=== PATIENT | female | born 1940 | race Caucasian/White ===

== ENCOUNTER → 2017-02-28 08:29 | Outpatient (CLI) | payer MEDICARE, MEDICAID, SELFPAY ==
--- NOTE | 2017-02-28 08:47 | CT_ITS ---
CT chest wo con HISTORY: Follow-up bilateral lung nodules ITS.REASON: LUNG MASS, ABNORMAL CT ORDERING PHYSICIAN: Meliton Yi MD PATIENT AGE: 76 years TECHNIQUE: Axial images obtained. Sagittal and coronal reformatted images are also generated and reviewed. CONTRAST: None COMPARISON: 01/05/2017 FINDINGS: The left lobe of the thyroid gland is enlarged with a 1.8 cm nodule along the lower pole on the left which may be better evaluated with ultrasound. Atherosclerotic calcification involves the aortic arch and coronary arteries. The heart size is normal. There is minimal thickening of the pericardium anteriorly. No mediastinal or hilar mass or adenopathy is evident. There is a small hiatal hernia. Severe centrilobular emphysematous changes are once again noted. There are fibrotic changes in the right apex along with a calcified granuloma in the right upper lobe. There is a new 5 mm noncalcified nodule in the right upper lobe centrally. A subpleural nodular density is present in the right upper lobe anteriorly at 4 mm not significantly changed. Previously described 8 mm nodule in the right middle lobe now measures 11 mm. Previously noted 15 mm nodule in the right lower lobe laterally is slightly smaller at 11 mm. Thick walled cavitating lesion in the left upper lobe is not significantly changed measuring 18 x 19 mm. No obvious bony destructive process. There remains focal area of dense calcification in the lower thoracic aorta along the anterior right lateral aspect. Cystic lesions once again noted within the liver. IMPRESSION: 1. Overall no change in the thick-walled cavitating mass in the left upper lobe. 2. There is mixed response in the multiple pulmonary nodules identified. The largest nodule in the right lung base laterally has decreased in size whereas 2 additional nodules on the right are larger. These findings are consistent with metastatic disease. 3. Centrilobular emphysema with coronary artery disease
[2017-02-28 12:46] VITALS: PULSE 90; PULSE 94
[2017-02-28 12:47] VITALS: BP 176/87; PULSE 90; RESP 20; O2SAT 95
[2017-02-28 12:49] VITALS: BP 215/94; PULSE 143; RESP 30; O2SAT 80
== END ==
PROVIDERS: Family Provider Nurse Practitioner Family; PCP Internal Medicine; Visit Provider Internal Medicine
DX: R06.02 Shortness of breath (principal); R91.8 Other nonspecific abnormal finding of lung field; R93.8 Abnormal findings on diagnostic imaging of other specified body structures; J44.9 Chronic obstructive pulmonary disease, unspecified
CPT/HCPCS: 71250; 94060; 94618; 94640; 94726; 94729

== ENCOUNTER → 2017-04-01 15:40 | Outpatient (CLI) | payer MEDICARE, MEDICAID, SELFPAY ==
--- NOTE | 2017-04-01 15:41 | XR_ITS ---
XR ribs LT min 3V w CXR1V HISTORY: ITS.REASON: left rib pain, history of pulmonary nodules, possible metastasis ORDERING PHYSICIAN: Philippe Schulz PATIENT AGE: 76 years COMPARISON: None FINDINGS: No displaced rib fractures. No lytic or blastic lesions evident. Consider bone scan for further evaluation in this patient with history of pulmonary nodules. IMPRESSION: No acute finding
--- NOTE | 2017-04-01 15:41 | XR_ITS ---
XR chest 2V HISTORY: ITS.REASON: cough ORDERING PHYSICIAN: Philippe Schulz PATIENT AGE: 76 years COMPARISON: 01/04/2017 FINDINGS: Unremarkable cardiovascular structures. No lobar consolidation or collapse is evident. Patient has known multiple bilateral pulmonary nodules are seen on previous chest CT. Left upper lobe nodule at 16 mm noted. Right middle lobe nodule has increased in size compared to the previous chest x-ray. These findings are suspicious for metastasis as noted from the previous chest CT. Mild left basilar atelectasis. IMPRESSION: 1. Multiple pulmonary nodules consistent with metastasis. 2. Left lower lobe atelectasis
== END ==
PROVIDERS: PCP Nurse Practitioner Family; Visit Provider Nurse Practitioner Family
DX: R05 Cough (principal); R07.81 Pleurodynia
CPT/HCPCS: 71046; 71101

== ENCOUNTER 2017-04-23 16:43 | Observation (INO) | payer MEDICARE, SELFPAY ==
[2017-04-23] VITALS (7 sets, daily range): BP systolic 125–165; BP diastolic 55–87; PULSE 91–106; RESP 20–24; TEMP 36.6–37.3; O2SAT 93–100; BMI 20.4; BMI 20.5
--- NOTE | 2017-04-23 17:01 | XR_ITS ---
XR chest 2V HISTORY: Dyspnea, cough ITS.REASON: cough, WALLER ORDERING PHYSICIAN: Corey Aggarwal MD PATIENT AGE: 76 years COMPARISON: 04/01/2017 FINDINGS: Normal heart size. Mild prominence of mediastinum probably related to tortuosity/ectasia of the ascending aorta. Bilateral pulmonary nodules are present consistent with metastatic disease as previously described. The nodule within the right middle lobe is increased in size measuring 18 mm previously measuring 12 mm. Patchy density is present in the left lung base may be due to an area of infiltrate. There is chronic coarsening of the bronchovascular markings. IMPRESSION: 1. Left lower lobe infiltrate. 2. Metastatic disease with increasing size nodule in the right middle lobe
[2017-04-23 17:21] LABS: Basophils % 0.4 % (0.1-2.0); Eosinophils # 0.1 K/mm3 (0.0-0.4); Eosinophils % 0.9 % (0.1-12.0); Hematocrit 37.6 % (37.0-47.0); Lymphocytes # 0.8 K/mm3 (0.7-4.5); Lymphocytes % 8.6 K/mm3 (10-50); Mean Corpuscular Hemoglobin 27.9 pg (27.0-31.2); Mean Platelet Volume 8.1 fl (7.4-10.4); Monocytes # 0.6 K/mm3 (0.1-1.0); Neutrophils # 8.2 K/mm3 (1.8-7.8); Neutrophils % 84.1 % (37.0-80.0); Platelet Count 290 K/mm3 (142-424); Red Blood Count 4.32 M/mm3 (4.20-5.40); Red Cell Distribution Width 14.6 % (11.5-17.5); White Blood Count 9.7 K/mm3 (4.8-10.8)
[2017-04-23 17:28] LABS: Alanine Aminotransferase 20 U/L (12-78); Albumin Level 3.6 gm/dL (3.4-5.0); Albumin/Globulin Ratio 0.9 (1.1-1.8); Alkaline Phosphatase 68 U/L (46-116); Anion Gap 12.6 mEq/L (5-15); Aspartate Amino Transferase 12 U/L (15-37); Bilirubin,Total 0.7 mg/dL (0.2-1.0); Blood Urea Nitrogen 7 mg/dL (7-18); Calcium 8.9 mg/dL (8.5-10.1); Carbon Dioxide 29 mmol/L (21.0-32.0); Chloride 101 mmol/L (98-107); Creatinine Clearance Estimated 42 mL/min (0-300); Creatinine,Serum 0.66 mg/dL (0.55-1.02); Estimated Glomerular Filt Rate 88 ml/min (>60); GFR (African American) 106 ML/MIN (>60); Globulin 3.9 gm/dl (1.3-3.2); Glucose 113 mg/dL (74-106); Potassium 3.6 mmoL/L (3.5-5.1); Sodium 139 mmol/L (136-145); Total Protein,Serum 7.5 gm/dL (6.4-8.2)
[2017-04-23 17:31] LABS: Lactic Acid 0.9 mmol/L (0.4-2.0)
--- NOTE | 2017-04-23 18:26 | HMH.EDGENADL ---
ED Disposition Clinical Impression: COPD exacerbation Acute bronchitis Qualifiers: Bronchitis organism: unspecified organism Qualified Code(s): J20.9 - Acute bronchitis, unspecified Disposition: Still a Patient Condition on Discharge: Good Referrals: Corey Aggarwal MD [Primary Care Provider] - - Critical Care Critical Care Time: No Attestation: On 04/23/17, the high probability of a clinically significant, sudden or life threatening deterioration of the following system(s) required my full and direct attention, intervention and personal management. The time I documented below is in addition to time spent performing reported procedures but includes the following listed in this critical care notation. Medical Decision Making Vital Signs: 04/23/17 16:47 04/23/17 18:14 Temperature 99.2 F Temperature Source Oral Pulse Rate [Right Brachial] 106 H 95 H Respiratory Rate 24 20 Blood Pressure [Right Arm] 133/81 160/75 Blood Pressure Mean [Right Arm] 98 103 Blood Pressure Source [Right Arm] Automatic Cuff Automatic Cuff Blood Pressure Position [Right Arm] Sitting Sitting 02 Sat by Pulse Oximetry 97 96 Oxygen Delivery Method Nasal Cannula Nasal Cannula Oxygen Flow Rate (LPM) 3 3 - Lab Data Lab Results 04/23/17 17:08: WBC 9.7, RBC 4.32, Hgb 12.0 L, Hct 37.6, MCV 87.0, MCH 27.9, MCHC 32.0, RDW 14.6, Plt Count 290, MPV 8.1, Neut % (Auto) 84.1 H, Lymph % (Auto) 8.6 L, [place] % (Auto) 6.0, Eos % (Auto) 0.9, Baso % (Auto) 0.4, Neut # (Auto) 8.2 H, Lymph # (Auto) 0.8, [place] # (Auto) 0.6, Eos # (Auto) 0.1, Baso # (Auto) 0.0 04/23/17 17:08: Sodium 139, Potassium 3.6, Chloride 101, Carbon Dioxide 29, Anion Gap 12.6, BUN 7, Creatinine 0.66, Estimated Creat Clear 42, Estimated GFR 88, Est GFR ( Amer) 106, Glucose 113 H, Calcium 8.9, Total Bilirubin 0.7, AST 12 L, ALT 20, Alkaline Phosphatase 68, Total Protein 7.5, Albumin 3.6, Globulin 3.9 H, Albumin/Globulin Ratio 0.9 L 04/23/17 17:08: Lactic Acid 0.9 Result diagrams: 04/23/17 17:08 04/23/17 17:08 Orders (Tests/Meds): ED MEDICATIONS Generic Name Dose Route Start Last Admin Trade Name Freq PRN Reason Stop Dose Admin Ceftriaxone Sodium 1 gm/ 50 mls @ 100 mls/hr 04/23/17 18:47 Sodium Chloride IV 04/23/17 19:16 ONCE ONE Discontinued Medications Generic Name Dose Route Start Last Admin Trade Name Freq PRN Reason Stop Dose Admin Albuterol/Ipratropium 3 ml 04/23/17 18:36 Duoneb 3ml Neb IH 04/23/17 18:37 ONCE ONE Azithromycin 500 mg/ Sodium 250 mls @ 250 mls/hr 04/23/17 18:47 Chloride IV 04/23/17 18:48 ONCE ONE Protocol ORDERS Category Date Time Status Chest XR 2 view (NOT portable) [XR chest 2V] Stat Exams 04/23/17 17:01 Taken Blood Culture Stat Micro 04/23/17 17:08 Received - Radiology Data #1 Image(s): Chest Image Reviewed: Yes I reviewed the patient's radiology results Nodules bilaterally, seen on previous x-rays. No acute infiltrate seen. COPD present. - Stefano Inquiry Pt receiving controlled substance: No Medical Decision Making Narrative: 6:45 PM: I have discussed the case with Dr. Agosto for Dr. Aggarwal who agrees to admit the patient to the hospital. We discussed the patient's clinical information, including history, exam, laboratory and radiology results and ED course. Per hospital procedure, I will write temporary bridge inpatient orders on the patient. Specific orders requested by the admitting physician: Rocephin and Zithromax, nebulizer treatments General Adult HPI - General Chief complaint: Shortness of Breath/Dyspnea Stated complaint: Sent from Dr. Aggarwal's Office Mode of Arrival: Ambulatory Limitations: No Limitations Description of Symptoms (Recalled from ER Triage Doc. by RN): productive cough x1 week, reports increased WALLER - History of Present Illness HPI narrative: The patient complains of cough, increasing dyspnea on exertion with low sock
--- NOTE | 2017-04-23 20:12 | PC.NURSE ---
REPORT CALLED AT 1924. NOTIFIED 2ND FLOOR AT 2009 THAT PATIENT WAS READY TO COME UP.
[2017-04-24 03:53] VITALS: BP 150/65; PULSE 86; RESP 20; TEMP 36.7; O2SAT 95
--- NOTE | 2017-04-24 04:12 | PC.NURSE ---
no changes noted from previous assessment, pt has rested well this shift, denies pain at this time, pt states SOA, breath sounds are diminished with expiratory wheezes noted, pt maintaining O2 sats at or above 90 on 2 L NC, bowel sounds active, no acute distress noted at this time, call light in reach, will continue to monitor.
[2017-04-24 06:22] VITALS: PULSE 87; PULSE 91; O2SAT 94
[2017-04-24 07:40] VITALS: BP 125/69; PULSE 106; RESP 18; TEMP 37.2; O2SAT 97
--- NOTE | 2017-04-24 07:54 | HMH.PHAVTE ---
[facility] Pharmacy VTE Monitoring - Patient Demographics Admission date: 04/23/17 Report Date: 04/24/17 Time: 07:54 Allergies/Adverse Reactions: Patient Allergies STEROIDS Allergy (Uncoded 04/23/17 16:12) Anaphylaxis Height: 1.63 m Weight: 54.176 kg Patient Problems: Current Active Problems COPD exacerbation (Acute) Acute bronchitis (Acute) - VTE Risk Labs: VTE Related Lab Results Hgb 12.0 g/dL (12.2-16.2) L 04/23/17 17:08 Hct 37.6 % (37.0-47.0) 04/23/17 17:08 Plt Count 290 K/mm3 (142-424) 04/23/17 17:08 BUN 7 mg/dL (7-18) 04/23/17 17:08 Creatinine 0.66 mg/dL (0.55-1.02) 04/23/17 17:08 Estimated Creat Clear 42 mL/min (0-300) 04/23/17 17:08 Was VTE Risk Assessment Performed: Yes VTE Score: 2 VTE Risk Level: Very Low Risk - Prophylaxis VTE Prophylaxis Ordered?: Yes Types of VTE Prophylaxis: TEDS Knee High Location of Applied Device: Bilateral Lower Extremeties - VTE Diagnosis Confirmed Treatment or plan recommended: Continue Current Treatment
--- NOTE | 2017-04-24 09:03 | CT_ITS ---
CT chest w con HISTORY: Shortness of breath, cough, abnormal chest x-ray follow-up, pulmonary nodule ITS.REASON: sob, poss lung mass ORDERING PHYSICIAN: Corey Aggarwal MD PATIENT AGE: 76 years TECHNIQUE: Axial images obtained following the intravenous administration of 75 mL's of Isovue-370 contrast. Sagittal, and coronal reformatted images are also generated and reviewed. COMPARISON: 02/28/2017 FINDINGS: There are slightly enlarged left lobe of the thyroid gland with a 6 mm nodule in the lower pole. Normal heart size. No evidence of central pulmonary embolus. The peripheral pulmonary arteries are not well opacified. No evidence of aortic aneurysm. There is mild degree of motion artifact which does obscure fine detail. Small lymph node is present in the right hilum and 1.6 x 1.7 cm. There is biapical pleural scarring with centrilobular emphysematous change and evidence of old granulomatous disease. There are multiple bilateral pulmonary nodules as previously described chip increased in size. The nodule noted on the radiograph in the right middle lobe measures 2 x 1.7 cm and previously measured 1 x 1 cm. Other smaller nodules are present and have increased in size including a macro lobular nodule in the right lower lobe laterally at 1.2 cm, 0.8 cm nodule right upper lobe in the subpleural region and a 0.7 cm nodule right upper lobe centrally. There is a cavitating nodule in the left upper lobe medially which measures 1.8 x 1.8 cm. This nodule is not significantly changed. There is patchy peripheral density in the left lower lobe within the lung base and laterally consistent with mild pneumonia. There is a new parenchymal opacity left lung base medially which may be due to atelectasis. A new nodules present in the left lower lobe posteriorly at 5 mm. Upper abdominal images demonstrates a cystic lesion in the right lobe of the liver 5.6 cm. There are 2 small isodensity is of the left lobe of the liver the largest at 5 mm posterolaterally to cyst as well too small to categorize. There is scarring of the right kidney. No bony destructive process is evident. There is a prominent area of eccentric plaque within the lower thoracic aorta anterolaterally. IMPRESSION: 1. Enlarging bilateral pulmonary nodules consistent with metastatic disease. Mildly enlarged right hilar lymph node 2. No change 2 cm left upper lobe cavitating mass which may represent primary neoplasm. 3. Centrilobular emphysema
--- NOTE | 2017-04-24 11:56 | SW/DCPLANNER ---
Spoke with this patient regarding discharge plans. Patient stated that she lives at home with family and does not feel the need for home health at this time. Patient stated that she does not have a need for a walker and has O2 at home. Patient stated that she cares for her seven year old grandson. Patient could potentially discharge home later this afternoon.
[2017-04-24 16:00] VITALS: BP 150/72; PULSE 93; RESP 18; TEMP 37.1; O2SAT 98
--- NOTE | 2017-04-24 16:47 | HMH.HPDC ---
General - General Admission date: 04/23/17 Discharge date: 04/24/17 *Admission Date: 04/23/17 *Chief complaint: sob *History of present illness: 76 yr old female seen in office yesterday with complains of cough, increasing dyspnea on exertion with low o2 sats (88%)with exertion, really a low-grade fever for 1 week. She has hx of COPD. She is on oxygen at home. She has a nebulizer at home. She reports allergic to all steroids. pt admitted for eval for sob [facility] History I have reviewed the patient's past medical history: Yes Medical History: Reports:: Anxiety, Asthma, Chronic Obstructive Pulmonary Disease (COPD) Denies:: Cancer, Diabetes Mellitus Type 1, Diabetes Mellitus Type 2 Other Surgeries: Yes: Hernia Repair, Hysterectomy-Partial Amputation: No Fractures: No - *Social History Smoking Status: Former smoker Tobacco Type: cigarettes Alcohol Intake: never Substance Use Type: denies use Occupational Status: retired Housing: house Household Members: family, children - Psychiatric History Expresses thoughts of harming self/others: None Suicide Plan Description: No Plan Pschychiatric History:: Reports:: Anxiety *Family Hx:: No significant family history Review of Systems - Constitutional Reports fatigue, Reports lack of energy - Eyes Denies floaters - ENT Denies sinus pressure - *Cardiovascular Denies foot swelling - *Respiratory Reports chest congestion, Reports cough, Reports shortness of breath, Reports shortness of breath with activity, Reports wheezing - *Gastrointestinal Denies difficulty swallowing - *Genitourinary Denies urinary incontinence - *Musculoskeletal Denies body aches - Integumentary/Breasts Denies rash - *Neurologic Denies radiating pain - Psychiatric Denies lack of enjoyment - Endocrine Denies excessive sweating - Hematologic/Lymphatic Denies enlarged lymph nodes - Allergic/Immunologic Denies lip swelling Exam Vital signs and Labs for Last 24 Hours: Temp Pulse Resp BP Pulse Ox 98.8 F 93 H 18 150/72 98 04/24/17 16:00 04/24/17 16:00 04/24/17 16:00 04/24/17 16:00 04/24/17 16:00 I & O for Last 24 hours: Intake & Output 04/22/17 04/23/17 04/24/17 04/25/17 11:59 11:59 11:59 11:59 Intake Total 420 / 670 240 / 240 Balance 420 / 670 240 / 240 Weight 119 lb 7 oz - Constitutional no acute distress - *Routine HEENT Exam Head: Present: normocephalic Eye: Present: PERRL ENT: Present: mucous membranes moist - *Routine Neck Exam Present: full ROM - *Routine Respiratory Exam Present: wheezes - *Routine Cardiovascular Exam Present: RRR - *Routine Extremities Exam Present: full ROM - *Routine Neurological Exam Present: alert, oriented X3, CN II-XII intact - Routine Psychiatric Exam Present: normal affect Hospital Course Hospital Course: spoke with dr cabral he will arrange out pt bronchscopy to evaluate lung mass. will dc home on zpak and hold steriods due to allergy. ct chest: IMPRESSION: 1. Enlarging bilateral pulmonary nodules consistent with metastatic disease. Mildly enlarged right hilar lymph node 2. No change 2 cm left upper lobe cavitating mass which may represent primary neoplasm. 3. Centrilobular emphysema Discharge Medications Discharge Medications: Home Medications Medication Instructions Recorded Confirmed Type albuterol sulfate 2.5 mg/3 mL 3 ml INHALATION Q4HP PRN 04/01/17 04/24/17 History (0.083 %) solution for nebulization budesonide-formoterol HFA 160 2 puff INHALATION Q12H 04/01/17 04/24/17 History mcg-4.5 mcg/actuation aerosol inhaler tiotropium bromide 18 mcg capsule 1 puff INHALATION DAILY each 04/01/17 04/24/17 History with inhalation device Ipratropium/Albuterol Sulfate 1 puff INHALATION TID 04/23/17 04/23/17 History [Combivent Respimat Inh] Albuterol Sulfate [Albuterol HFA 1 puff IH Q4HP PRN 04/24/17 04/24/17 History Inhaler]
--- NOTE | 2017-04-24 16:51 | P.HPDS_ITS ---
General - General Admission date: 04/23/17 Discharge date: 04/24/17 *Admission Date: 04/23/17 *Chief complaint: sob *History of present illness: 76 yr old female seen in office yesterday with complains of cough, increasing dyspnea on exertion with low o2 sats (88%)with exertion, really a low-grade fever for 1 week. She has hx of COPD. She is on oxygen at home. She has a nebulizer at home. She reports allergic to all steroids. pt admitted for eval for sob [facility] History I have reviewed the patient's past medical history: Yes Medical History: Reports:: Anxiety, Asthma, Chronic Obstructive Pulmonary Disease (COPD) Denies:: Cancer, Diabetes Mellitus Type 1, Diabetes Mellitus Type 2 Other Surgeries: Yes: Hernia Repair, Hysterectomy-Partial Amputation: No Fractures: No - *Social History Smoking Status: Former smoker Tobacco Type: cigarettes Alcohol Intake: never Substance Use Type: denies use Occupational Status: retired Housing: house Household Members: family, children - Psychiatric History Expresses thoughts of harming self/others: None Suicide Plan Description: No Plan Pschychiatric History:: Reports:: Anxiety *Family Hx:: No significant family history Review of Systems - Constitutional Reports fatigue, Reports lack of energy - Eyes Denies floaters - ENT Denies sinus pressure - *Cardiovascular Denies foot swelling - *Respiratory Reports chest congestion, Reports cough, Reports shortness of breath, Reports shortness of breath with activity, Reports wheezing - *Gastrointestinal Denies difficulty swallowing - *Genitourinary Denies urinary incontinence - *Musculoskeletal Denies body aches - Integumentary/Breasts Denies rash - *Neurologic Denies radiating pain - Psychiatric Denies lack of enjoyment - Endocrine Denies excessive sweating - Hematologic/Lymphatic Denies enlarged lymph nodes - Allergic/Immunologic Denies lip swelling Exam Vital signs and Labs for Last 24 Hours: Temp Pulse Resp BP Pulse Ox 98.8 F 93 H 18 150/72 98 04/24/17 16:00 04/24/17 16:00 04/24/17 16:00 04/24/17 16:00 04/24/17 16:00 I & O for Last 24 hours: Intake & Output 04/22/17 04/23/17 04/24/17 04/25/17 11:59 11:59 11:59 11:59 Intake Total 420 / 670 240 / 240 Balance 420 / 670 240 / 240 Weight 119 lb 7 oz - Constitutional no acute distress - *Routine HEENT Exam Head: Present: normocephalic Eye: Present: PERRL ENT: Present: mucous membranes moist - *Routine Neck Exam Present: full ROM - *Routine Respiratory Exam Present: wheezes - *Routine Cardiovascular Exam Present: RRR - *Routine Extremities Exam Present: full ROM - *Routine Neurological Exam Present: alert, oriented X3, CN II-XII intact - Routine Psychiatric Exam Present: normal affect Hospital Course Hospital Course: spoke with dr cabral he will arrange out pt bronchscopy to evaluate lung mass. will dc home on zpak and hold steriods due to allergy. ct chest: IMPRESSION: 1. Enlarging bilateral pulmonary nodules consistent with metastatic disease. Mildly enlarged right hilar lymph node 2. No change 2 cm left upper lobe cavitating mass which may represent primary neoplasm. 3. Centrilobular emphysema Discharge Medications Discharge Medica
[2017-04-24 17:07] LABS: Erythrocyte Sedimentation Rate 49 mm/hr (0-30)
== END 2017-04-24 17:55 | disposition home or self-care (01) ==
LOC: ER 18:39 → 2ND 20:24
PROVIDERS: Admitting Provider Emergency Medicine; Emergency Provider Emergency Medicine; Family Provider Nurse Practitioner Family; PCP Emergency Medicine; Visit Provider Emergency Medicine
DX: J44.0 Chronic obstructive pulmonary disease with (acute) lower respiratory infection (principal); J20.9 Acute bronchitis, unspecified; J44.1 Chronic obstructive pulmonary disease with (acute) exacerbation; Z99.81 Dependence on supplemental oxygen; R06.09 Other forms of dyspnea
CPT/HCPCS: 36415; 71046; 71260; 80053; 83605; 85025; 85651; 87040; 93041; 94640; 94760; 94761; 96365; 96367; 99285; G0378; J0456; Q9967

== ENCOUNTER → 2017-04-29 11:05 | Outpatient (POV) | payer MEDICARE, SELFPAY ==
[2017-04-29 12:39] LABS: Basophils # 0.1 K/mm3 (0-0.2); Basophils % 0.9 % (0.1-2.0); Eosinophils # 0.1 K/mm3 (0.0-0.4); Eosinophils % 2.2 % (0.1-12.0); Hematocrit 40.4 % (37.0-47.0); Hemoglobin 12.7 g/dL (12.2-16.2); Lymphocytes # 1.1 K/mm3 (0.7-4.5); Lymphocytes % 15.9 K/mm3 (10-50); Mean Corpuscular HGB Conc 31.5 g/dL (31.8-35.4); Mean Corpuscular Hemoglobin 28.2 pg (27.0-31.2); Mean Corpuscular Volume 89.6 fl (81-99); Mean Platelet Volume 7.7 fl (7.4-10.4); Monocytes # 0.3 K/mm3 (0.1-1.0); Neutrophils # 5.1 K/mm3 (1.8-7.8); Neutrophils % 77.1 % (37.0-80.0); Platelet Count 349 K/mm3 (142-424); Red Blood Count 4.52 M/mm3 (4.20-5.40); Red Cell Distribution Width 14.4 % (11.5-17.5); White Blood Count 6.6 K/mm3 (4.8-10.8)
[2017-04-29 12:49] LABS: Alanine Aminotransferase 23 U/L (12-78); Albumin Level 3.7 gm/dL (3.4-5.0); Albumin/Globulin Ratio 0.9 (1.1-1.8); Alkaline Phosphatase 71 U/L (46-116); Anion Gap 7.8 mEq/L (5-15); Aspartate Amino Transferase 13 U/L (15-37); Bilirubin,Total 0.3 mg/dL (0.2-1.0); Blood Urea Nitrogen 11 mg/dL (7-18); Calcium 9.3 mg/dL (8.5-10.1); Carbon Dioxide 31 mmol/L (21.0-32.0); Chloride 102 mmol/L (98-107); Creatinine,Serum 0.76 mg/dL (0.55-1.02); Estimated Glomerular Filt Rate 74 ml/min (>60); GFR (African American) 90 ML/MIN (>60); Glucose 101 mg/dL (74-106); Potassium 3.8 mmoL/L (3.5-5.1); Sodium 137 mmol/L (136-145); Total Protein,Serum 7.7 gm/dL (6.4-8.2)
[2017-05-01 20:13] LABS: Blastomyces Antibody Negative (Neg:<1:1)
[2017-05-02 15:24] LABS: Histoplasma Gal'mannan Ag Ur <0.5 (<0.5 ng/mL)
[2017-05-02 20:12] LABS: Aspergillus flavus Negative (Neg:<1:1); Aspergillus fumigatus Negative (Neg:<1:1)
[2017-05-03 18:33] LABS: Aspergillus niger Negative (Neg:<1:1)
== END ==
PROVIDERS: Nurse Practitioner Family; Visit Provider Internal Medicine
DX: R93.8 Abnormal findings on diagnostic imaging of other specified body structures (principal); R91.8 Other nonspecific abnormal finding of lung field
CPT/HCPCS: 36415; 80053; 85025; 86606; 86612; 86698

== ENCOUNTER → 2017-07-08 11:04 | Outpatient (POV) | payer MEDICARE, MEDICAID, SELFPAY ==
[2017-07-08 13:19] LABS: D-Dimer 385 ng/mL (0-400)
== END ==
PROVIDERS: Family Provider Nurse Practitioner Family; PCP Nurse Practitioner Family; Visit Provider Nurse Practitioner Family
DX: R06.02 Shortness of breath (principal)
CPT/HCPCS: 36415; 85378

== ENCOUNTER → 2017-07-22 14:22 | Outpatient (CLI) | payer MEDICARE, MEDICAID, SELFPAY ==
--- NOTE | 2017-07-22 14:27 | CT_ITS ---
CT chest wo con HISTORY: Follow-up lung mass, Pulmonary nodules and lymphadenopathy follow-up ITS.REASON: ABNORMAL CHEST X-RAY ORDERING PHYSICIAN: Meliton Yi MD PATIENT AGE: 76 years COMPARISON: 118 Technique: Axial images obtained. Sagittal and coronal reformatted images are also generated and reviewed. All CT scans at the facility use one or more dose reduction, viz: automated exposure control; ma/kV adjustment per patient size (including targeted exams where dose is matched to indication; i.e. head); or iterative reconstruction technique. FINDINGS: Previously described nodule within the left lobe of thyroid gland has enlarged now measuring 2 cm previously 6 mm. Consider ultrasound for further evaluation. The trachea slightly is deviated toward the right. Coronary artery calcifications are noted. Normal heart size. Minimal pericardial thickening. Cavitary left upper lobe mass once again noted measuring approximately 2 cm overall not significantly changed. There are fibrotic changes in the right apex. Centrilobular and hand lobular emphysematous changes are present. Multiple bilateral pulmonary noncalcified nodules are present. The centered increased in size with the largest mass within the right lower lobe laterally at 2.9 x 2.6 cm. Previously this nodule measured 1.3 x 1.1 cm. There is a new nodule present in the left upper lobe anteriorly measuring 9 x 5 mm. No effusions or infiltrates. No acute bony anomalies. Atherosclerotic changes are present within the thoracic aorta. IMPRESSION: 1. Progression of pulmonary metastasis. Multiple pulmonary nodules have increased in size and there is a new nodule in the left upper lobe. 2. No change cavitating mass in the left upper lobe. 3. Enlarging left thyroid nodule. Consider ultrasound for further evaluation.
== END ==
PROVIDERS: Family Provider Nurse Practitioner Family; PCP Nurse Practitioner Family; Visit Provider Internal Medicine
DX: R91.8 Other nonspecific abnormal finding of lung field (principal)
CPT/HCPCS: 71250

== ENCOUNTER → 2017-07-28 13:40 | Outpatient (CLI) | payer MEDICARE, MEDICAID, SELFPAY ==
[2017-07-28 14:24] LABS: INR 0.95 (0.9-1.1); Prothrombin Time 10.3 seconds (9.4-11.8)
[2017-07-28 14:27] LABS: Basophils # 0.1 K/mm3 (0-0.2); Basophils % 1.2 % (0.1-2.0); Eosinophils # 0.3 K/mm3 (0.0-0.4); Eosinophils % 6.3 % (0.1-12.0); Hematocrit 41.4 % (37.0-47.0); Hemoglobin 12.6 g/dL (12.2-16.2); Lymphocytes # 1.3 K/mm3 (0.7-4.5); Lymphocytes % 25.5 K/mm3 (10-50); Mean Corpuscular HGB Conc 30.4 g/dL (31.8-35.4); Mean Corpuscular Hemoglobin 26.8 pg (27.0-31.2); Mean Corpuscular Volume 88.2 fl (81-99); Mean Platelet Volume 7.4 fl (7.4-10.4); Monocytes # 0.3 K/mm3 (0.1-1.0); Monocytes % 4.9 % (1.7-9.3); Neutrophils # 3.2 K/mm3 (1.8-7.8); Neutrophils % 61.9 % (37.0-80.0); Platelet Count 277 K/mm3 (142-424); Red Blood Count 4.69 M/mm3 (4.20-5.40); Red Cell Distribution Width 13.8 % (11.5-17.5); White Blood Count 5.1 K/mm3 (4.8-10.8)
[2017-07-28 15:35] LABS: Alanine Aminotransferase 25 U/L (12-78); Albumin Level 3.7 gm/dL (3.4-5.0); Albumin/Globulin Ratio 1.2 (1.1-1.8); Alkaline Phosphatase 89 U/L (46-116); Anion Gap 6.2 mEq/L (5-15); Aspartate Amino Transferase 23 U/L (15-37); Bilirubin,Total 0.4 mg/dL (0.2-1.0); Blood Urea Nitrogen 9 mg/dL (7-18); Calcium 9.3 mg/dL (8.5-10.1); Carbon Dioxide 33 mmol/L (21.0-32.0); Chloride 104 mmol/L (98-107); Creatinine,Serum 0.64 mg/dL (0.55-1.02); Estimated Glomerular Filt Rate 91 ml/min (>60); GFR (African American) 110 ML/MIN (>60); Globulin 3.2 gm/dl (1.3-3.2); Glucose 104 mg/dL (74-106); Potassium 4.2 mmoL/L (3.5-5.1); Sodium 139 mmol/L (136-145); Total Protein,Serum 6.9 gm/dL (6.4-8.2)
== END ==
PROVIDERS: Visit Provider Nurse Practitioner Family
DX: R91.8 Other nonspecific abnormal finding of lung field (principal); Z79.899 Other long term (current) drug therapy
CPT/HCPCS: 36415; 80053; 85025; 85610

== ENCOUNTER 2017-08-05 11:34 | Observation (INO) ==
--- NOTE | 2017-08-05 12:04 | Emergency Department Note ---
ED Disposition Clinical Impression: Lower GI bleed Disposition: Still a Patient Condition on Discharge: Fair Referrals: Corey Aggarwal MD [Primary Care Provider] - - Critical Care Critical Care Time: No Attestation: On 08/05/17, the high probability of a clinically significant, sudden or life threatening deterioration of the following system(s) required my full and direct attention, intervention and personal management. The time I documented below is in addition to time spent performing reported procedures but includes the following listed in this critical care notation. Medical Decision Making - Stefano Inquiry Pt receiving controlled substance: No Vital Signs: 08/05/17 11:38 Temperature 98.2 F Temperature Source Oral Pulse Rate [Right Radial] 76 Respiratory Rate 16 Blood Pressure [Right Arm] 152/76 Blood Pressure Mean [Right Arm] 101 Blood Pressure Source [Right Arm] Automatic Cuff 02 Sat by Pulse Oximetry 97 Oxygen Delivery Method Room Air - Lab Data Lab Results 08/05/17 11:55: WBC 4.9, RBC 4.04 L, Hgb 11.0 L, Hct 34.9 L, MCV 86.2, MCH 27.3 , MCHC 31.7 L, RDW 13.9, Plt Count 255, MPV 7.7, Neut % (Auto) 65.7, Lymph % ( Auto) 25.0, [place] % (Auto) 5.5, Eos % (Auto) 2.5, Baso % (Auto) 1.3, Neut # (Auto ) 3.2, Lymph # (Auto) 1.2, [place] # (Auto) 0.3, Eos # (Auto) 0.1, Baso # (Auto) 0.1 08/05/17 11:55: Sodium 143, Potassium 3.8, Chloride 106, Carbon Dioxide 28, Anion Gap 12.8, BUN 13, Creatinine 0.64, Estimated Creat Clear 44, Estimated GFR 91, Est GFR ( Amer) 110, Glucose 91, Calcium 8.9, Total Bilirubin 0.5 , AST 23, ALT 22, Alkaline Phosphatase 78, Total Protein 6.9, Albumin 3.5, Globulin 3.4 H, Albumin/Globulin Ratio 1.0 L 08/05/17 11:55: PT 9.8, INR 0.91 Result diagrams: 08/05/17 11:55 08/05/17 11:55 Orders (Tests/Meds): ED MEDICATIONS Discontinued Medications Generic Name Dose Route Start Last Admin Trade Name Shilpa PRN Reason Stop Dose Admin Sodium Chloride 1,000 mls @ 999 mls/hr 08/05/17 12:00 Sod Chlor 0.9% 1000ml Bag IV 08/05/17 13:00 .Q1H1M NAI Pantoprazole Sodium 40 mg 08/05/17 12:00 Protonix 40mg Vial IV 08/05/17 12:01 ONCE ONE Sodium Chloride 8 ml 08/05/17 12:00 Saline Flush 10ml Syringe IV 08/05/17 12:01 ONCE ONE ORDERS Category Date Time Status Occult Blood,Stool Stat Lab 08/05/17 12:20 Ordered - CT Data CT Scan: Abdomen, Pelvis Time Received: 13:[address] Reviewed: Yes: I have viewed the radiologist's interpretation Findings Narrative: Pulmonary and hepatic metastases. Constipation. - Physician Consults Physician Consulted: Philippe Schulz for Dr. Aggarwal Time: 13:29 Reason -: Admission Comment/Response: Agrees to admit the patient to the hospital. We discussed the patient's clinical information, including history, exam, laboratory and radiology results and ED course. Per hospital procedure, I will write temporary bridge inpatient orders on the patient. Specific orders requested by the admitting physician: Surgery consult Additional Consult: Nighat Time: 13:33 Reason -: Surgical Eval/Care Comment/Response: He will consult General Adult HPI - General Chief complaint: GI Bleed Stated complaint: blood in bowels Time Seen by Provider: 08/05/17 12:03 Mode of Arrival: Ambulatory Limitations: No Limitations Description of Symptoms (Recalled from ER Triage Doc. by RN): Possible GI Bleed - History of Present Illness HPI narrative: 3-4 episodes of passing large amounts of bright red blood per rectum since about 4 AM. No vomiting of blood. States initially had no abdominal pain but since waking up at about 9 AM she has had a gurgling or hunger sensation in her abdomen. No fever. No prior history of gastrointestinal bleeding. Her only blood thinner is aspirin, but she has not taken it since 07/31/17 because she is supposed to go for a needle biopsy of her lung tomorrow. She has had lung masses for 2 years, she says that they are noncancerous on all of her tests so far. She states she has never had a colonoscopy. Says that she cannot take GoLYTELY. It makes her vomit. - Related Data Home Medications Medication Instructions Recorded Confirmed albuterol sulfate 2.5 mg/3 mL 3 ml INHALATION Q4HP PRN 04/01/17 04/24/17 (0.083 %) solution for nebulization Lisinopril [Lisinopril 2.5mg Tab] 2.5 mg PO DAILY 08/05/17 08/05/17 diazePAM [Valium] 5 mg PO BID 08/05/17 08/05/17 Previous Rx's Medication Instructions Recorded albuterol sulfate HFA 90 1 puff INHALATION Q4HP PRN #18 g 07/09/17 mcg/actuation aerosol inhaler budesonide-formoterol HFA 160 2 puff INHALATION Q12H #10.2 g 07/09/17 mcg-4.5 mcg/actuation aerosol inhaler ipratropium 20 mcg-albuterol 100 1 puff INHALATION QID #4 g 07/09/17 mcg/actuation mist for inhalation tiotropium bromide 18 mcg capsule 1 cap INHALATION DAILY #30 each 07/09/17 with inhalation device Allergies Allergy/AdvReac Type Severity Reaction Status Date / Time STEROIDS Allergy Anaphylaxis Uncoded 06/26/17 13:35 [facility] History I have reviewed the patient's past medical history: Yes Medical History: Reports:: Anxiety, Asthma, Chronic Obstructive Pulmonary Disease (COPD) Denies:: Cancer, Diabetes Mellitus Type 1, Diabetes Mellitus Type 2 Other Surgeries: Yes: Hernia Repair, Hysterectomy-Partial Amputation: No Fractures: No - Social History Educational Level: Completed High School Smoking Status: Former smoker Tobacco Type: cigarettes Alcohol Intake: never Substance Use Type: denies use Occupational Status: retired Housing: house Household Members: family, children - Psychiatric History Expresses thoughts of harming self/others: None Suicide Plan Description: No Plan Pschychiatric History:: Reports:: Anxiety Family Hx:: No significant family history ROS Obtained: Yes All systems reviewed & no additional complaints - Constitutional Constitutional: Denies fever(s) - Cardiovascular Cardiovascular: Denies chest pain - Respiratory Respiratory: No dyspnea - Gastrointestinal Gastrointestingal: Reports: as per HPI, bright red blood in stools. Denies: vomiting blood, vomiting Physical Exam - General General appearance: alert, in no apparent distress - Head Head exam: atraumatic, normocephalic, normal inspection - Eye Eye exam: Present: normal appearance, PERRL, EOMI - ENT ENT exam: Present: normal exam, normal oropharynx, mucous membranes moist, TM's normal bilaterally, normal external ear exam - Neck Neck exam: Present: normal inspection, full ROM, trachea midline. Absent: meningismus, lymphadenopathy - Chest Chest inspection: Present: normal inspection, symmetric chest wall rise. Absent : tenderness - Respiratory Respiratory exam: Present: normal lung sounds bilaterally. Absent: respiratory distress - Cardiovascular Cardiovascular exam: Present: regular rate, normal rhythm. Absent: JVD - Abdominal Exam Abdominal exam: Present: soft, tenderness, normal bowel sounds. Absent: distention, guarding Abdominal tenderness: Present: RUQ, RLQ, mild - Extremities Exam Extremities exam: Present: normal inspection, full ROM, normal capillary refill. Absent: calf tenderness - Back Exam Back exam: Present: normal inspection. Absent: tenderness - Neurological Exam Neurological exam: Present: alert, oriented X3 - Psychiatric Psychiatric exam: Present: normal affect, normal mood - Skin Skin exam: Present: warm, dry, intact, pallor
[2017-08-05 12:09] LABS: Basophils # 0.1 K/mm3 (0-0.2); Basophils % 1.3 % (0.1-2.0); Eosinophils # 0.1 K/mm3 (0.0-0.4); Eosinophils % 2.5 % (0.1-12.0); Hematocrit 34.9 % (37.0-47.0); Lymphocytes # 1.2 K/mm3 (0.7-4.5); Mean Corpuscular HGB Conc 31.7 g/dL (31.8-35.4); Mean Corpuscular Hemoglobin 27.3 pg (27.0-31.2); Mean Corpuscular Volume 86.2 fl (81-99); Mean Platelet Volume 7.7 fl (7.4-10.4); Monocytes # 0.3 K/mm3 (0.1-1.0); Monocytes % 5.5 % (1.7-9.3); Neutrophils # 3.2 K/mm3 (1.8-7.8); Neutrophils % 65.7 % (37.0-80.0); Platelet Count 255 K/mm3 (142-424); Red Blood Count 4.04 M/mm3 (4.20-5.40); Red Cell Distribution Width 13.9 % (11.5-17.5); White Blood Count 4.9 K/mm3 (4.8-10.8)
[2017-08-05 12:24] LABS: Albumin Level 3.5 gm/dL (3.4-5.0); Anion Gap 12.8 mEq/L (5-15); Bilirubin,Total 0.5 mg/dL (0.2-1.0); Calcium 8.9 mg/dL (8.5-10.1); Globulin 3.4 gm/dl (1.3-3.2); Potassium 3.8 mmoL/L (3.5-5.1); Total Protein,Serum 6.9 gm/dL (6.4-8.2)
[2017-08-05 12:28] LABS: INR 0.91 (0.9-1.1); Prothrombin Time 9.8 seconds (9.4-11.8)
--- NOTE | 2017-08-05 14:37 | Consult Report ---
*Admission Date: 08/05/17 *Chief complaint: Bleeding in bowels *History of present illness: Patient is a 76-year-old white female with a history of significant COPD. She has a relatively long-standing lung masses. She has never had any history of rectal bleeding. She states that early this morning approximately 4 AM she felt the urge to defecate and had a bowel movement which she initially thought was liquid diarrhea. However it was proven to be bright red blood. She had several additional bowel movements and had passed some clots. Initially she denies any pain but had some discomfort in the right upper quadrant and epigastrium. She presented to the emergency department here at [facility]. She was evaluated and admitted for inpatient management and surgical consultation. She did undergo CT scan of the abdomen pelvis without any contrast whatsoever which revealed findings of liver cyst and multiple hepatic lesions consistent with metastatic disease. Patient states in the past when she had attempted to drink GoLYTELY she had vomiting. She has never had prior colonoscopy. Review of Systems - Review of Systems Review of systems:: pertinent systems reviewed and negative unless documented below [facility] History Medical History: Reports:: Anxiety, Asthma, Chronic Obstructive Pulmonary Disease (COPD) Denies:: Cancer, Diabetes Mellitus Type 1, Diabetes Mellitus Type 2 Other Surgeries: Yes: Hernia Repair, Hysterectomy-Partial Amputation: No Fractures: No - *Social History Educational Level: Completed High School Smoking Status: Former smoker Tobacco Type: cigarettes Alcohol Intake: never Substance Use Type: denies use Occupational Status: retired Housing: house Household Members: family, children - Psychiatric History Expresses thoughts of harming self/others: None Suicide Plan Description: No Plan Pschychiatric History:: Reports:: Anxiety *Family Hx:: No significant family history Meds Home Medications Medication Instructions Recorded Confirmed Type albuterol sulfate 2.5 mg/3 mL 3 ml INHALATION Q4HP PRN 04/01/17 08/05/17 History (0.083 %) solution for nebulization Lisinopril [Lisinopril 2.5mg Tab] 2.5 mg PO DAILY 08/05/17 08/05/17 History diazePAM [Valium] 5 mg PO BID 08/05/17 08/05/17 History Allergies Allergy/AdvReac Type Severity Reaction Status Date / Time STEROIDS Allergy Anaphylaxis Uncoded 06/26/17 13:35 Exam Vital signs and Labs for Last 24 Hours: Temp Pulse Resp BP Pulse Ox 98.0 F 80 16 146/82 97 08/05/17 14:26 08/05/17 14:26 08/05/17 14:26 08/05/17 14:26 08/05/17 11:38 Laboratory Results - last 24 hr 08/05/17 11:55: WBC 4.9, RBC 4.04 L, Hgb 11.0 L, Hct 34.9 L, MCV 86.2, MCH 27.3 , MCHC 31.7 L, RDW 13.9, Plt Count 255, MPV 7.7, Neut % (Auto) 65.7, Lymph % ( Auto) 25.0, [place] % (Auto) 5.5, Eos % (Auto) 2.5, Baso % (Auto) 1.3, Neut # (Auto ) 3.2, Lymph # (Auto) 1.2, [place] # (Auto) 0.3, Eos # (Auto) 0.1, Baso # (Auto) 0.1 08/05/17 11:55: Sodium 143, Potassium 3.8, Chloride 106, Carbon Dioxide 28, Anion Gap 12.8, BUN 13, Creatinine 0.64, Estimated Creat Clear 44, Estimated GFR 91, Est GFR ( Amer) 110, Glucose 91, Calcium 8.9, Total Bilirubin 0.5 , AST 23, ALT 22, Alkaline Phosphatase 78, Total Protein 6.9, Albumin 3.5, Globulin 3.4 H, Albumin/Globulin Ratio 1.0 L 08/05/17 11:55: PT 9.8, INR 0.91 I & O for Last 24 hours: Intake & Output 08/03/17 08/04/17 08/05/17 08/06/17 11:59 11:59 11:59 11:59 Weight 125 lb - Constitutional no acute distress - *Routine Respiratory Exam Present: decreased breath sounds - *Routine Cardiovascular Exam Present: RRR - *Routine Abdominal Exam Present: soft Comments: No palpable masses. Some discomfort in the right upper quadrant and epigastrium without guarding or rebound. Results - Labs 08/05/17 11:55 08/05/17 11:55 Laboratory Results - last 24 hr 08/05/17 11:55: WBC 4.9, RBC 4.04 L, Hgb 11.0 L, Hct 34.9 L, MCV 86.2, MCH 27.3 , MCHC 31.7 L, RDW 13.9, Plt Count 255, MPV 7.7, Neut % (Auto) 65.7, Lymph % ( Auto) 25.0, [place] % (Auto) 5.5, Eos % (Auto) 2.5, Baso % (Auto) 1.3, Neut # (Auto ) 3.2, Lymph # (Auto) 1.2, [place] # (Auto) 0.3, Eos # (Auto) 0.1, Baso # (Auto) 0.1 08/05/17 11:55: Sodium 143, Potassium 3.8, Chloride 106, Carbon Dioxide 28, Anion Gap 12.8, BUN 13, Creatinine 0.64, Estimated Creat Clear 44, Estimated GFR 91, Est GFR ( Amer) 110, Glucose 91, Calcium 8.9, Total Bilirubin 0.5 , AST 23, ALT 22, Alkaline Phosphatase 78, Total Protein 6.9, Albumin 3.5, Globulin 3.4 H, Albumin/Globulin Ratio 1.0 L 08/05/17 11:55: PT 9.8, INR 0.91 Assessment and Plan - Assessment and plan all Dx Assessment and Plan for all problems:: Concern for possible colon lesion. Tentatively will plan for bowel preparation tonight and colonoscopy tomorrow.
--- NOTE | 2017-08-05 15:25 | History & Physical Report ---
*Admission Date: 08/05/17 *Chief complaint: bloody stool *History of present illness: Patient is a 76-year-old white female with a history of significant COPD. She has a relatively long-standing lung masses. She has never had any history of rectal bleeding. She states that early this morning approximately 4 AM she felt the urge to defecate and had a bowel movement which she initially thought was liquid diarrhea. However it was proven to be bright red blood. She had several additional bowel movements and had passed some clots. Initially she denies any pain but had some discomfort in the right upper quadrant and epigastrium. She presented to the emergency department here at [facility]. She was evaluated and admitted for inpatient management and surgical consultation. She did undergo CT scan of the abdomen pelvis without any contrast whatsoever which revealed findings of liver cyst and multiple hepatic lesions consistent with metastatic disease. Patient states in the past when she had attempted to drink GoLYTELY she had vomiting. She has never had prior colonoscopy. [facility] History I have reviewed the patient's past medical history: Yes Medical History: Reports:: Anxiety, Asthma, Chronic Obstructive Pulmonary Disease (COPD) Denies:: Cancer, Diabetes Mellitus Type 1, Diabetes Mellitus Type 2, MRSA Other Surgeries: Yes: Hernia Repair, Hysterectomy-Partial, Other Amputation: No Fractures: No - *Social History Educational Level: Completed High School Smoking Status: Former smoker Tobacco Type: cigarettes Smoking End Date: 07/03/16 Alcohol Intake: never Substance Use Type: denies use Occupational Status: retired Housing: house Household Members: family, children - Psychiatric History Expresses thoughts of harming self/others: None Suicide Plan Description: No Plan Pschychiatric History:: Reports:: Anxiety *Family Hx:: No significant family history Review of Systems - Constitutional Denies headache(s), Denies increased appetite, Denies weakness - Eyes Denies change in vision - ENT Denies bleeding gums, Denies sore throat - *Cardiovascular Reports shortness of breath, Denies chest pain at rest, Denies chest pain with activity - *Respiratory Denies chest congestion - *Gastrointestinal Reports abdominal pain, Reports bright, red blood in stools - *Genitourinary Denies urinary urgency - *Musculoskeletal Denies joint pain, Denies decreased muscle mass - Integumentary/Breasts Denies bleeding lesions, Denies rash - *Neurologic Denies abnormal hearing, Denies dizziness, Denies fainting - Psychiatric Denies anxiety - Endocrine Denies heat intolerance - Hematologic/Lymphatic Denies enlarged lymph nodes - Allergic/Immunologic Denies lip swelling Meds Home Medications Medication Instructions Recorded Confirmed Type albuterol sulfate 2.5 mg/3 mL 3 ml INHALATION Q4HP PRN 04/01/17 08/05/17 History (0.083 %) solution for nebulization Lisinopril [Lisinopril 2.5mg Tab] 2.5 mg PO DAILY 08/05/17 08/05/17 History diazePAM [Valium] 5 mg PO BID 08/05/17 08/05/17 History Allergies Allergy/AdvReac Type Severity Reaction Status Date / Time STEROIDS Allergy Anaphylaxis Uncoded 06/26/17 13:35 Exam Vital signs and Labs for Last 24 Hours: Temp Pulse Resp BP Pulse Ox 97.4 F L 74 18 186/87 100 08/05/17 14:36 08/05/17 14:36 08/05/17 14:36 08/05/17 14:36 08/05/17 14:36 Laboratory Results - last 24 hr 08/05/17 11:55: WBC 4.9, RBC 4.04 L, Hgb 11.0 L, Hct 34.9 L, MCV 86.2, MCH 27.3 , MCHC 31.7 L, RDW 13.9, Plt Count 255, MPV 7.7, Neut % (Auto) 65.7, Lymph % ( Auto) 25.0, [place] % (Auto) 5.5, Eos % (Auto) 2.5, Baso % (Auto) 1.3, Neut # (Auto ) 3.2, Lymph # (Auto) 1.2, [place] # (Auto) 0.3, Eos # (Auto) 0.1, Baso # (Auto) 0.1 08/05/17 11:55: Sodium 143, Potassium 3.8, Chloride 106, Carbon Dioxide 28, Anion Gap 12.8, BUN 13, Creatinine 0.64, Estimated Creat Clear 44, Estimated GFR 91, Est GFR ( Amer) 110, Glucose 91, Calcium 8.9, Total Bilirubin 0.5 , AST 23, ALT 22, Alkaline Phosphatase 78, Total Protein 6.9, Albumin 3.5, Globulin 3.4 H, Albumin/Globulin Ratio 1.0 L 08/05/17 11:55: PT 9.8, INR 0.91 I & O for Last 24 hours: Intake & Output 08/03/17 08/04/17 08/05/17 08/06/17 11:59 11:59 11:59 11:59 Weight 125 lb 123 lb 7 oz - Constitutional no acute distress - *Routine HEENT Exam Head: Present: normocephalic Eye: Present: PERRL ENT: Present: mucous membranes moist - *Routine Neck Exam Present: full ROM - *Routine Respiratory Exam Present: CTA bilaterally - *Routine Cardiovascular Exam Present: RRR - *Routine Abdominal Exam Present: soft, normoactive bowel sounds, tenderness - *Routine Extremities Exam Present: full ROM - *Routine Skin Exam Present: intact - *Routine Neurological Exam Present: alert, oriented X3, CN II-XII intact - Routine Psychiatric Exam Present: normal affect, normal thought process H&P: Result - Labs Labs: Short CBC 08/05/17 Range/Units 11:55 WBC 4.9 (4.8-10.8) K/mm3 Hgb 11.0 L (12.2-16.2) g/dL Hct 34.9 L (37.0-47.0) % Plt Count 255 (142-424) K/mm3 BMP 08/05/17 11:55 Sodium 143 Potassium 3.8 Chloride 106 Carbon Dioxide 28 BUN 13 Creatinine 0.64 Glucose 91 Calcium 8.9 Liver Function 08/05/17 Range/Units 11:55 Total Bilirubin 0.5 (0.2-1.0) mg/dL AST 23 (15-37) U/L ALT 22 (12-78) U/L Alkaline Phosphatase 78 (46-116) U/L Albumin 3.5 (3.4-5.0) gm/dL Assessment and Plan - Assessment and plan all Dx Assessment and Plan for all problems:: Dr. Aggarwal will round later today all orders per Alessia
--- NOTE | 2017-08-05 15:34 | Pharmacy Consult Notes ---
[facility] Pharmacy VTE Monitoring - Patient Demographics Admission date: 08/05/17 Report Date: 08/05/17 Time: 15:32 Allergies/Adverse Reactions: Patient Allergies STEROIDS Allergy (Uncoded 06/26/17 13:35) Anaphylaxis Height: 1.63 m Weight: 55.934 kg Patient Problems: Current Active Problems Lower GI bleed (Acute) - VTE Risk Labs: VTE Related Lab Results Hgb 11.0 g/dL (12.2-16.2) L 08/05/17 11:55 Hct 34.9 % (37.0-47.0) L 08/05/17 11:55 Plt Count 255 K/mm3 (142-424) 08/05/17 11:55 PT 9.8 seconds (9.4-11.8) 08/05/17 11:55 INR 0.91 (0.9-1.1) 08/05/17 11:55 BUN 13 mg/dL (7-18) 08/05/17 11:55 Creatinine 0.64 mg/dL (0.55-1.02) 08/05/17 11:55 Estimated Creat Clear 44 mL/min (0-300) 08/05/17 11:55 VTE Score: 4 VTE Risk Level: Low Risk - Prophylaxis VTE Prophylaxis Ordered?: Yes Types of VTE Prophylaxis: TEDS Knee High Location of Applied Device: Bilateral Lower Extremeties
[2017-08-05 15:58] LABS: Basophils # 0.1 K/mm3 (0-0.2); Basophils % 0.9 % (0.1-2.0); Eosinophils # 0.1 K/mm3 (0.0-0.4); Eosinophils % 2.3 % (0.1-12.0); Hemoglobin 11.2 g/dL (12.2-16.2); Lymphocytes # 1.2 K/mm3 (0.7-4.5); Lymphocytes % 23.7 K/mm3 (10-50); Mean Corpuscular Hemoglobin 26.5 pg (27.0-31.2); Mean Corpuscular Volume 85.6 fl (81-99); Mean Platelet Volume 8.2 fl (7.4-10.4); Monocytes # 0.3 K/mm3 (0.1-1.0); Monocytes % 4.8 % (1.7-9.3); Neutrophils # 3.5 K/mm3 (1.8-7.8); Neutrophils % 68.2 % (37.0-80.0); Platelet Count 268 K/mm3 (142-424); Red Blood Count 4.21 M/mm3 (4.20-5.40); Red Cell Distribution Width 13.8 % (11.5-17.5); White Blood Count 5.2 K/mm3 (4.8-10.8)
--- NOTE | 2017-08-06 06:54 | Progress Note ---
Subjective Narrative: Patient underwent bowel prep. She states that she has had some dark liquid stool. She complains of some epigastric pain. Exam Vital signs and Labs for Last 24 Hours: Temp Pulse Resp BP Pulse Ox 97.9 F 87 18 144/69 96 08/06/17 03:51 08/06/17 03:51 08/06/17 03:51 08/06/17 03:51 08/06/17 05:48 Laboratory Results - last 24 hr 08/05/17 11:55: WBC 4.9, RBC 4.04 L, Hgb 11.0 L, Hct 34.9 L, MCV 86.2, MCH 27.3 , MCHC 31.7 L, RDW 13.9, Plt Count 255, MPV 7.7, Neut % (Auto) 65.7, Lymph % ( Auto) 25.0, [place] % (Auto) 5.5, Eos % (Auto) 2.5, Baso % (Auto) 1.3, Neut # (Auto ) 3.2, Lymph # (Auto) 1.2, [place] # (Auto) 0.3, Eos # (Auto) 0.1, Baso # (Auto) 0.1 08/05/17 11:55: Sodium 143, Potassium 3.8, Chloride 106, Carbon Dioxide 28, Anion Gap 12.8, BUN 13, Creatinine 0.64, Estimated Creat Clear 44, Estimated GFR 91, Est GFR ( Amer) 110, Glucose 91, Calcium 8.9, Total Bilirubin 0.5 , AST 23, ALT 22, Alkaline Phosphatase 78, Total Protein 6.9, Albumin 3.5, Globulin 3.4 H, Albumin/Globulin Ratio 1.0 L 08/05/17 11:55: PT 9.8, INR 0.91 08/05/17 15:50: WBC 5.2, RBC 4.21, Hgb 11.2 L, Hct 36.0 L, MCV 85.6, MCH 26.5 L , MCHC 31.0 L, RDW 13.8, Plt Count 268, MPV 8.2, Neut % (Auto) 68.2, Lymph % ( Auto) 23.7, [place] % (Auto) 4.8, Eos % (Auto) 2.3, Baso % (Auto) 0.9, Neut # (Auto ) 3.5, Lymph # (Auto) 1.2, [place] # (Auto) 0.3, Eos # (Auto) 0.1, Baso # (Auto) 0.1 I & O for Last 24 hours: Intake & Output 08/03/17 08/04/17 08/05/17 08/06/17 11:59 11:59 11:59 11:59 Weight 125 lb 123 lb 5 oz - *Routine Abdominal Exam Comments: Some tenderness in epigastrium.
[2017-08-06 06:56] LABS: Basophils % 0.9 % (0.1-2.0); Eosinophils # 0.2 K/mm3 (0.0-0.4); Hematocrit 36.2 % (37.0-47.0); Hemoglobin 11.1 g/dL (12.2-16.2); Lymphocytes # 1.3 K/mm3 (0.7-4.5); Lymphocytes % 36.5 K/mm3 (10-50); Mean Corpuscular HGB Conc 30.6 g/dL (31.8-35.4); Mean Corpuscular Hemoglobin 26.7 pg (27.0-31.2); Mean Corpuscular Volume 87.2 fl (81-99); Mean Platelet Volume 7.7 fl (7.4-10.4); Monocytes # 0.2 K/mm3 (0.1-1.0); Monocytes % 5.8 % (1.7-9.3); Neutrophils # 1.9 K/mm3 (1.8-7.8); Neutrophils % 50.8 % (37.0-80.0); Platelet Count 256 K/mm3 (142-424); Red Blood Count 4.15 M/mm3 (4.20-5.40); White Blood Count 3.6 K/mm3 (4.8-10.8)
--- NOTE | 2017-08-06 09:15 | Progress Note ---
Internal Medicine - PN: Subj *Date: 08/06/17 *Time: 09:13 Interval history: pt with some epigatric pain and no new bleeding with scopes today per surg Exam Vital signs and Labs for Last 24 Hours: Temp Pulse Resp BP Pulse Ox 98.4 F 83 18 155/66 99 08/06/17 08:00 08/06/17 08:00 08/06/17 08:00 08/06/17 08:00 08/06/17 08:00 Laboratory Results - last 24 hr 08/05/17 11:55: WBC 4.9, RBC 4.04 L, Hgb 11.0 L, Hct 34.9 L, MCV 86.2, MCH 27.3 , MCHC 31.7 L, RDW 13.9, Plt Count 255, MPV 7.7, Neut % (Auto) 65.7, Lymph % ( Auto) 25.0, [place] % (Auto) 5.5, Eos % (Auto) 2.5, Baso % (Auto) 1.3, Neut # (Auto ) 3.2, Lymph # (Auto) 1.2, [place] # (Auto) 0.3, Eos # (Auto) 0.1, Baso # (Auto) 0.1 08/05/17 11:55: Sodium 143, Potassium 3.8, Chloride 106, Carbon Dioxide 28, Anion Gap 12.8, BUN 13, Creatinine 0.64, Estimated Creat Clear 44, Estimated GFR 91, Est GFR ( Amer) 110, Glucose 91, Calcium 8.9, Total Bilirubin 0.5 , AST 23, ALT 22, Alkaline Phosphatase 78, Total Protein 6.9, Albumin 3.5, Globulin 3.4 H, Albumin/Globulin Ratio 1.0 L 08/05/17 11:55: PT 9.8, INR 0.91 08/05/17 15:50: WBC 5.2, RBC 4.21, Hgb 11.2 L, Hct 36.0 L, MCV 85.6, MCH 26.5 L , MCHC 31.0 L, RDW 13.8, Plt Count 268, MPV 8.2, Neut % (Auto) 68.2, Lymph % ( Auto) 23.7, [place] % (Auto) 4.8, Eos % (Auto) 2.3, Baso % (Auto) 0.9, Neut # (Auto ) 3.5, Lymph # (Auto) 1.2, [place] # (Auto) 0.3, Eos # (Auto) 0.1, Baso # (Auto) 0.1 08/06/17 06:30: WBC 3.6 L D, RBC 4.15 L, Hgb 11.1 L, Hct 36.2 L, MCV 87.2, MCH 26.7 L, MCHC 30.6 L, RDW 14.0, Plt Count 256, MPV 7.7, Neut % (Auto) 50.8, Lymph % (Auto) 36.5, [place] % (Auto) 5.8, Eos % (Auto) 6.0, Baso % (Auto) 0.9, Neut # (Auto) 1.9, Lymph # (Auto) 1.3, [place] # (Auto) 0.2, Eos # (Auto) 0.2, Baso # (Auto) 0.0 I & O for Last 24 hours: Intake & Output 08/03/17 08/04/17 08/05/17 08/06/17 11:59 11:59 11:59 11:59 Intake Total 0 / 0 Balance 0 / 0 Weight 125 lb 123 lb 5 oz - Constitutional no acute distress - *Routine HEENT Exam Head: Present: normocephalic Eye: Present: EOMI, PERRL ENT: Present: mucous membranes dry - *Routine Neck Exam Present: supple - *Routine Respiratory Exam Absent: respiratory distress - *Routine Cardiovascular Exam Present: RRR - *Routine Abdominal Exam Present: soft - *Routine Extremities Exam Present: full ROM - *Routine Skin Exam Present: intact - *Routine Neurological Exam Present: alert, oriented X3, CN II-XII intact - Routine Psychiatric Exam Present: normal affect
--- NOTE | 2017-08-06 11:37 | Progress Note ---
[facility] Anesthesia Checklist - Structural Data Admitted From: Inpatient Planned Operative Procedure/s: egd,colonoscopy Consent for Planned Operative Procedure(s) Verified: Yes - Airway Assessment C-Spine Mobility Assessed: Yes TMJ Mobility Assessed: Yes Dentition: Good Dentition - Neurological Assessment Level of Consciousness: Awake, Alert, Appropriate - Anesthesia Plan Anesthesia Risk discussed: Yes Anesthesia Plan: Verified ASA Class: III Anesthesia Type: [facility] Anesthesia HX I have reviewed the patient's past medical history: Yes Medical History: Reports:: Anxiety, Asthma, Chronic Obstructive Pulmonary Disease (COPD) Denies:: Cancer, Diabetes Mellitus Type 1, Diabetes Mellitus Type 2, MRSA Other Surgeries: Yes: Hernia Repair, Hysterectomy-Partial, Other Amputation: No Fractures: No *Family Hx:: No significant family history
--- NOTE | 2017-08-06 13:23 | Procedure Note ---
- Procedure: Date: 08/06/17 Procedure Performed:: 1. Esophagogastroduodenoscopy 2. Total colonoscopy with numerous polypectomy by hot snare and balloon dilatation of circumferential nearly obstructing sigmoid colon mass and multiple biopsies Indications:: Patient is a 76-year-old white female who presented with rectal bleeding. She did undergo CT scan evaluation in the emergency department which revealed findings of liver lesions consistent with metastatic disease as well as lung. Performing Provider:: Ayo Disla MD Referring Provider:: Alessia Sedation:: Propofol Procedure:: Attention was first turned to upper endoscopy. Adequate intravenous sedation was achieved. Olympus endoscope was inserted via the oropharynx and advanced through the esophagus. Esophagus for the majority appeared normal. There are a couple of punctate erosions at the gastroesophageal junction but no evidence of any bleeding. Stomach was cannulated and insufflated. Retroflexion was performed which revealed a small hiatal hernia. Pylorus appeared normal. Scope was advanced through the pylorus and into the duodenal sweep which was unremarkable. Endoscope was withdrawn. Next attention was turned to colonoscopy. Digital examination revealed minimal external hemorrhoids. Variable stiffness Olympus colonoscope was inserted via the anus. It was advanced to the sigmoid at which point a circumferential ulcerated friable nearly obstructing mass was encountered. Multiple biopsies were obtained. Colonoscope was unable to be advanced beyond this. Colonoscope was removed and replaced with the endoscope which was then inserted and with some difficulty able to be advanced beyond this mass. Endoscope was then withdrawn and balloon dilatation was performed sequentially from 15-18 mm using the pneumatic balloon dilator. Endoscope was then removed and replaced with the colonoscope again. Colonoscope was able to be advanced beyond this nearly obstructing lesion at this time and into the cecum. The appendix orifice and ileocecal valve were identified. She had almost too numerous to count polyps which were mostly sessile consistent with adenomatous polyps. Many of these quite large. As the colonoscope was withdrawn larger of these polyps were removed mostly with hot snare. She had cecal polyp removed but this was unable to be obtained. A ascending colon polyp was removed. She had a confluence of multiple sessile adenomatous polyps removed at the hepatic flexure. There were multiple transverse colon polyps removed in a similar fashion and multiple polyps in the descending colon as well. She did have a couple of polyps in the proximal sigmoid removed and distal sigmoid polyp 2 and rectosigmoid region 3. 1 of these was quite large and required withdrawal of the colonoscope. There is several diminutive polyps adenomatous appearing polyps that were almost too numerous to count in the rectosigmoid region. Colonoscope was withdrawn. Findings:: Small hiatal hernia Minimal distal erosive esophagitis Numerous adenomatous appearing polyps throughout the colon, too numerous to count Circumferential apple core nearly obstructing sigmoid colon cancer Specimens:: Numerous polyps. See pathology report Recommendations:: This is likely metastatic colon cancer. Pathology pending. Recommend oncology evaluation. Complications:: None immediately apparent Estimated blood obtained (mL): 10
--- NOTE | 2017-08-07 06:42 | Progress Note ---
Subjective Patient reports: other (resting) Exam Vital signs and Labs for Last 24 Hours: Temp Pulse Resp BP Pulse Ox 98.0 F 83 16 133/65 96 08/07/17 04:39 08/07/17 04:39 08/07/17 04:39 08/07/17 04:39 08/07/17 04:39 Laboratory Results - last 24 hr 08/06/17 06:30: WBC 3.6 L D, RBC 4.15 L, Hgb 11.1 L, Hct 36.2 L, MCV 87.2, MCH 26.7 L, MCHC 30.6 L, RDW 14.0, Plt Count 256, MPV 7.7, Neut % (Auto) 50.8, Lymph % (Auto) 36.5, [place] % (Auto) 5.8, Eos % (Auto) 6.0, Baso % (Auto) 0.9, Neut # (Auto) 1.9, Lymph # (Auto) 1.3, [place] # (Auto) 0.2, Eos # (Auto) 0.2, Baso # (Auto) 0.0 I & O for Last 24 hours: Intake & Output 08/04/17 08/05/17 08/06/17 08/07/17 11:59 11:59 11:59 11:59 Intake Total 0 / 0 730 / 730 Output Total 550 / 550 Balance 0 / 0 180 / 180 Weight 125 lb 123 lb 5 oz 123 lb 5.014 oz - Constitutional no acute distress - *Routine Respiratory Exam Absent: respiratory distress - *Routine Cardiovascular Exam Present: RRR Progress Note: A&P (1) Colon cancer metastasized to liver Status: Acute Assessment and plan: Follow-up final path from colonoscopy Okay from surgical standpoint for discharge home with close outpatient follow-up Oncology consult as outpatient RTC with Dr. Disla next week Current Visit: Yes (2) Lower GI bleed Problem details: secondary to sigmoid cancer Status: Acute Assessment and plan: no sign of ongoing hemorrhage Okay from surgical standpoint for discharge home with close outpatient follow-up Current Visit: Yes
[2017-08-07 08:22] VITALS: BP 151/66
--- NOTE | 2017-08-07 09:12 | Discharge Summary ---
General - General Admission date:: 08/05/17 Discharge date: 08/07/17 HPI HPI: Patient is a 76-year-old white female with a history of significant COPD. She has a relatively long-standing lung masses. She has never had any history of rectal bleeding. She states that early this morning approximately 4 AM she felt the urge to defecate and had a bowel movement which she initially thought was liquid diarrhea. However it was proven to be bright red blood. She had several additional bowel movements and had passed some clots. Initially she denies any pain but had some discomfort in the right upper quadrant and epigastrium. She presented to the emergency department here at [facility]. She was evaluated and admitted for inpatient management and surgical consultation. She did undergo CT scan of the abdomen pelvis without any contrast whatsoever which revealed findings of liver cyst and multiple hepatic lesions consistent with metastatic disease. Patient states in the past when she had attempted to drink GoLYTELY she had vomiting. She has never had prior colonoscopy. Hospital Course Hospital Course: colonscopy results: Findings:: Small hiatal hernia Minimal distal erosive esophagitis Numerous adenomatous appearing polyps throughout the colon, too numerous to count Circumferential apple core nearly obstructing sigmoid colon cancer Specimens:: Numerous polyps. See pathology report Recommendations:: This is likely metastatic colon cancer. Pathology pending. Recommend oncology evaluation. Ct scan: FINDINGS: Multiple pulmonary nodules noted in the lung bases the largest in the right lower lobe at 3 cm consistent with metastasis. There are multiple isodense hepatic lesions. These are different density. The largest lesion is in the right hepatic lobe and is water density measuring 7 cm consistent with a cyst. The next largest lesion is in the left hepatic lobe measuring 3.9 cm consistent with a metastatic focus. There is an additional isodense lesion in the right hepatic lobe inferiorly at 2.6 cm consistent with metastatic disease. The spleen, adrenal glands, and pancreas are unremarkable. No renal mass or hydronephrosis. No renal or ureteral calculi. There is a moderate amount retained colonic feces. No abdominal or pelvic mass or adenopathy. No evidence of appendicitis or diverticulitis There is been prior kyphoplasty at L5 with mild wedging of L5. IMPRESSION: 1. Pulmonary and hepatic metastasis. 2. Constipation We will discharge patient home with follow-up with Gretchen and Dr. Disla. Objective Vital signs: Temp Pulse Resp BP Pulse Ox 98.0 F 91 H 16 151/66 97 08/07/17 08:00 08/07/17 08:00 08/07/17 08:00 08/07/17 08:00 08/07/17 08:00 no acute distress - *Routine HEENT Exam Head: Present: normocephalic Eye: Present: PERRL ENT: Present: mucous membranes moist - *Routine Respiratory Exam Present: CTA bilaterally - *Routine Cardiovascular Exam Present: RRR - *Routine Abdominal Exam Present: soft, normoactive bowel sounds - *Routine Extremities Exam Present: full ROM - Routine Back/Spine/Pelvis Exam Back/Spine: Present: full ROM - *Routine Skin Exam Present: intact - *Routine Neurological Exam Present: alert, oriented X3, CN II-XII intact - Routine Psychiatric Exam Present: normal affect, normal thought process Results - Additional Comments Rounded with Dr. Aggarwal all orders per Alessia DS: Diagnosis - Discharge Diagnosis (1) Colon cancer metastasized to liver Status: Acute (2) Lower GI bleed Status: Acute Problem details: secondary to sigmoid cancer Discharge Plan - Patient Discharge Instructions ACTIVITY: Continue current activity DIET: continue same diet - Follow up Plan Follow up with: Ayo Disla MD [Staff Physician] - 08/15/17 Kel Godinez MD [Staff Physician] - 08/13/17 Philippe Schulz APRN [Family Provider] - Disposition: Home, Self-Half-Way Medications: Home Medications Medication Instructions Recorded Confirmed Type albuterol sulfate 2.5 mg/3 mL 3 ml INHALATION Q4HP PRN 04/01/17 08/05/17 History (0.083 %) solution for nebulization Lisinopril [Lisinopril 2.5mg Tab] 2.5 mg PO DAILY 08/05/17 08/05/17 History diazePAM [Valium] 5 mg PO BID 08/05/17 08/05/17 History Prescriptions/Medication Reconciliation: Continue albuterol sulfate HFA 90 mcg/actuation aerosol inhaler 1 puff INHALATION Q4HP PRN #18 g PRN Reason: Shortness Of Breath Or Wheezing tiotropium bromide 18 mcg capsule with inhalation device 1 cap INHALATION DAILY #30 each ipratropium 20 mcg-albuterol 100 mcg/actuation mist for inhalation 1 puff INHALATION QID #4 g albuterol sulfate 2.5 mg/3 mL (0.083 %) solution for nebulization 3 ml INHALATION Q4HP PRN PRN Reason: Shortness Of Breath budesonide-formoterol HFA 160 mcg-4.5 mcg/actuation aerosol inhaler 2 puff INHALATION Q12H #10.2 g diazePAM [Valium] 5 mg PO BID Lisinopril [Lisinopril 2.5mg Tab] 2.5 mg PO DAILY
== END 2017-08-07 10:50 | disposition home or self-care (01) ==
LOC: 2ND 11:34 → ER 11:34 → 2ND 14:28
PROVIDERS: ADMIT Emergency Medicine; ATTEND Emergency Medicine

== ENCOUNTER → 2017-08-08 13:39 | Outpatient (CLI) | payer MEDICARE, MEDICAID, SELFPAY ==
--- NOTE | 2017-08-08 13:43 | US_ITS ---
US thyroid HISTORY: Thyroid mass, thyroid nodule evaluation ITS.REASON: THYROID MASS ORDERING PHYSICIAN: Leila Smith PATIENT AGE: 76 years Comparison: None FINDINGS: The right lobe is 4.1 x 2.0 x 1.5 cm. 4 mm cyst upper pole. Spongiform-appearing 7 x 5 mm nodule lower pole with a small cyst anterior to this region at 4 mm. The left lobe is 4.3 x 2.6 x 2.9 cm. 4 mm cyst upper pole 28 x 14 mm solid nodule lower lobe which is hypervascular. Additional 9 mm cyst in the lower pole IMPRESSION: Bilateral thyroid nodules 2.8 x 1.4 cm solid nodule lower pole on the left corresponding to the CT abnormality. The nodule is well-circumscribed. However, due to the size, FNA was ultrasound guidance may be of further value.
== END ==
PROVIDERS: Family Provider Nurse Practitioner Family; PCP Emergency Medicine; Visit Provider Nurse Practitioner Family
DX: E07.9 Disorder of thyroid, unspecified (principal)
CPT/HCPCS: 76536

== ENCOUNTER → 2017-08-25 11:20 | Outpatient (CLI) | payer MEDICARE, MEDICAID, SELFPAY ==
[2017-08-25 11:58] LABS: Basophils # 0.1 K/mm3 (0-0.2); Eosinophils # 0.2 K/mm3 (0.0-0.4); Eosinophils % 4.6 % (0.1-12.0); Hematocrit 34.8 % (37.0-47.0); Hemoglobin 10.8 g/dL (12.2-16.2); Lymphocytes # 1.1 K/mm3 (0.7-4.5); Mean Corpuscular HGB Conc 30.9 g/dL (31.8-35.4); Mean Corpuscular Hemoglobin 26.3 pg (27.0-31.2); Mean Corpuscular Volume 84.9 fl (81-99); Mean Platelet Volume 7.5 fl (7.4-10.4); Monocytes # 0.3 K/mm3 (0.1-1.0); Monocytes % 5.8 % (1.7-9.3); Neutrophils # 3.3 K/mm3 (1.8-7.8); Neutrophils % 66.6 % (37.0-80.0); Platelet Count 315 K/mm3 (142-424); Red Blood Count 4.09 M/mm3 (4.20-5.40); Red Cell Distribution Width 13.6 % (11.5-17.5); White Blood Count 4.9 K/mm3 (4.8-10.8)
[2017-08-25 13:43] LABS: Alanine Aminotransferase 24 U/L (12-78); Albumin Level 3.6 gm/dL (3.4-5.0); Albumin/Globulin Ratio 1.1 (1.1-1.8); Alkaline Phosphatase 78 U/L (46-116); Anion Gap 11.1 mEq/L (5-15); Aspartate Amino Transferase 22 U/L (15-37); Bilirubin,Total 0.3 mg/dL (0.2-1.0); Blood Urea Nitrogen 11 mg/dL (7-18); Calcium 8.9 mg/dL (8.5-10.1); Carbon Dioxide 28 mmol/L (21.0-32.0); Chloride 107 mmol/L (98-107); Creatinine,Serum 0.86 mg/dL (0.55-1.02); Estimated Glomerular Filt Rate 64 ml/min (>60); GFR (African American) 78 ML/MIN (>60); Globulin 3.2 gm/dl (1.3-3.2); Glucose 88 mg/dL (74-106); Potassium 4.1 mmoL/L (3.5-5.1); Sodium 142 mmol/L (136-145); Total Protein,Serum 6.8 gm/dL (6.4-8.2)
[2017-08-26 10:52] LABS: CEA 179.9 ng/mL (0.0-4.7)
== END ==
PROVIDERS: Visit Provider Internal Medicine
DX: C18.9 Malignant neoplasm of colon, unspecified (principal); C34.90 Malignant neoplasm of unspecified part of unspecified bronchus or lung
CPT/HCPCS: 36415; 80053; 82378; 85025

== ENCOUNTER 2017-09-26 11:00 | Outpatient (CLI) | payer MEDICARE, MEDICAID, SELFPAY ==
[2017-09-26] VITALS (10 sets, daily range): BP systolic 136–161; BP diastolic 60–84; PULSE 79–88; RESP 18–20; TEMP 36.6; O2SAT 94–99; BMI 20.2
[2017-09-26 11:29] LABS: Appearance,Urine CLEAR (Clear); Bilirubin,Urine Negative (Negative); Blood, Urine Negative (Negative); Color,Urine YELLOW (Yellow); Glucose,Urine (UA) Negative (Negative); Ketones,Urine Negative (Negative); Leukocyte Esterase,Urine Negative (Negative); Microscopic, Urine URINE MICROSCOPIC (MICROSCOPIC); Nitrate,Urine Negative (Negative); PH,Urine 5.5 (5.0-8.5); Protein,Urine Negative (Negative); Specific Gravity, Urine 1.025 (1.005-1.030); Urobilinogen,Urine 0.2 EU/dl (0.2)
[2017-09-26 11:31] LABS: Basophils # 0.1 K/mm3 (0-0.2); Basophils % 1.1 % (0.1-2.0); Eosinophils # 0.3 K/mm3 (0.0-0.4); Eosinophils % 5.1 % (0.1-12.0); Lymphocytes # 0.9 K/mm3 (0.7-4.5); Lymphocytes % 19.2 K/mm3 (10-50); Mean Corpuscular HGB Conc 31.3 g/dL (31.8-35.4); Mean Corpuscular Hemoglobin 25.5 pg (27.0-31.2); Mean Corpuscular Volume 81.6 fl (81-99); Mean Platelet Volume 7.3 fl (7.4-10.4); Monocytes # 0.3 K/mm3 (0.1-1.0); Monocytes % 6.1 % (1.7-9.3); Neutrophils # 3.3 K/mm3 (1.8-7.8); Neutrophils % 68.5 % (37.0-80.0); Platelet Count 310 K/mm3 (142-424); Red Blood Count 3.92 M/mm3 (4.20-5.40); Red Cell Distribution Width 13.8 % (11.5-17.5); White Blood Count 4.8 K/mm3 (4.8-10.8)
[2017-09-26 11:41] LABS: Bacteria,Urine Trace /lpf; Mucus,Urine Trace /lpf; WBC,Urine Occasional #/hpf (0-3)
== END 2017-09-26 14:30 | disposition home or self-care (01) ==
LOC: INF 11:34
PROVIDERS: Family Provider Nurse Practitioner Family; PCP Emergency Medicine; Visit Provider Internal Medicine
DX: Z51.11 Encounter for antineoplastic chemotherapy (principal); C18.9 Malignant neoplasm of colon, unspecified
CPT/HCPCS: 81001; 85025; 96413; 96415; J9035

== ENCOUNTER 2017-10-08 08:26 | Outpatient (CLI) | payer MEDICARE, MEDICAID, SELFPAY ==
[2017-10-08 08:29] VITALS: BMI 20.9
[2017-10-08 08:53] LABS: Microscopic, Urine URINE MICROSCOPIC (MICROSCOPIC)
[2017-10-08 08:55] LABS: Appearance,Urine CLEAR (Clear); Bilirubin,Urine Negative (Negative); Blood, Urine Negative (Negative); Color,Urine YELLOW (Yellow); Glucose,Urine (UA) Negative (Negative); Ketones,Urine Negative (Negative); Leukocyte Esterase,Urine Negative (Negative); Nitrate,Urine Negative (Negative); Protein,Urine Negative (Negative); Urobilinogen,Urine 0.2 EU/dl (0.2)
[2017-10-08 08:59] LABS: Basophils % 0.6 % (0.1-2.0); Eosinophils # 0.1 K/mm3 (0.0-0.4); Eosinophils % 3.9 % (0.1-12.0); Hematocrit 30.9 % (37.0-47.0); Hemoglobin 9.6 g/dL (12.2-16.2); Lymphocytes # 0.8 K/mm3 (0.7-4.5); Lymphocytes % 23.2 K/mm3 (10-50); Mean Corpuscular HGB Conc 31.1 g/dL (31.8-35.4); Mean Corpuscular Hemoglobin 25.8 pg (27.0-31.2); Mean Corpuscular Volume 83.1 fl (81-99); Mean Platelet Volume 7.4 fl (7.4-10.4); Monocytes # 0.2 K/mm3 (0.1-1.0); Monocytes % 6.6 % (1.7-9.3); Neutrophils # 2.3 K/mm3 (1.8-7.8); Neutrophils % 65.7 % (37.0-80.0); Platelet Count 357 K/mm3 (142-424); Red Blood Count 3.72 M/mm3 (4.20-5.40); Red Cell Distribution Width 17.6 % (11.5-17.5); White Blood Count 3.6 K/mm3 (4.8-10.8)
[2017-10-08 09:05] LABS: Bacteria,Urine Trace /lpf; Mucus,Urine 2+ /lpf
[2017-10-08 09:13] LABS: Alanine Aminotransferase 21 U/L (12-78); Albumin Level 3.6 gm/dL (3.4-5.0); Alkaline Phosphatase 82 U/L (46-116); Anion Gap 10.5 mEq/L (5-15); Aspartate Amino Transferase 16 U/L (15-37); Bilirubin,Total 0.4 mg/dL (0.2-1.0); Blood Urea Nitrogen 11 mg/dL (7-18); Calcium 8.8 mg/dL (8.5-10.1); Carbon Dioxide 32 mmol/L (21.0-32.0); Chloride 105 mmol/L (98-107); Creatinine Clearance Estimated 42 mL/min (0-300); Creatinine,Serum 0.71 mg/dL (0.55-1.02); Estimated Glomerular Filt Rate 80 ml/min (>60); GFR (African American) 97 ML/MIN (>60); Globulin 3.5 gm/dl (1.3-3.2); Glucose 104 mg/dL (74-106); Potassium 3.5 mmoL/L (3.5-5.1); Sodium 144 mmol/L (136-145); Total Protein,Serum 7.1 gm/dL (6.4-8.2)
[2017-10-08 11:15] VITALS: BP 152/72; PULSE 77; RESP 18; TEMP 36.6
[2017-10-08 11:30] VITALS: BP 158/77; PULSE 80; RESP 19
[2017-10-08 11:45] VITALS: BP 149/71; PULSE 72; RESP 18
[2017-10-08 12:00] VITALS: BP 167/73; PULSE 86; RESP 18
[2017-10-08 12:15] VITALS: BP 168/69; PULSE 82; RESP 18
[2017-10-08 12:35] VITALS: BP 144/73; PULSE 78; RESP 18; TEMP 36.5
== END 2017-10-08 12:35 | disposition home or self-care (01) ==
PROVIDERS: Family Provider Nurse Practitioner Family; PCP Emergency Medicine; Visit Provider Internal Medicine
DX: Z51.11 Encounter for antineoplastic chemotherapy (principal); C18.9 Malignant neoplasm of colon, unspecified
CPT/HCPCS: 80053; 81001; 85025; 96413; J9035

== ENCOUNTER 2017-10-21 13:07 | Outpatient (CLI) | payer MEDICARE, MEDICAID, SELFPAY ==
[2017-10-21 13:12] VITALS: BMI 21.6
[2017-10-21 13:34] LABS: Microscopic, Urine URINE MICROSCOPIC (MICROSCOPIC)
[2017-10-21 13:34] LABS: Basophils # 0.1 K/mm3 (0-0.2); Basophils % 1.2 % (0.1-2.0); Eosinophils # 0.2 K/mm3 (0.0-0.4); Eosinophils % 4.9 % (0.1-12.0); Hematocrit 33.5 % (37.0-47.0); Hemoglobin 10.5 g/dL (12.2-16.2); Lymphocytes # 1.1 K/mm3 (0.7-4.5); Lymphocytes % 26.8 K/mm3 (10-50); Mean Corpuscular HGB Conc 31.4 g/dL (31.8-35.4); Mean Corpuscular Hemoglobin 26.1 pg (27.0-31.2); Mean Corpuscular Volume 83.1 fl (81-99); Mean Platelet Volume 7.7 fl (7.4-10.4); Monocytes # 0.3 K/mm3 (0.1-1.0); Monocytes % 6.9 % (1.7-9.3); Neutrophils # 2.5 K/mm3 (1.8-7.8); Neutrophils % 60.2 % (37.0-80.0); Platelet Count 301 K/mm3 (142-424); Red Blood Count 4.02 M/mm3 (4.20-5.40); Red Cell Distribution Width 19.8 % (11.5-17.5); White Blood Count 4.1 K/mm3 (4.8-10.8)
[2017-10-21 13:42] LABS: Appearance,Urine CLEAR (Clear); Bilirubin,Urine Negative (Negative); Blood, Urine Negative (Negative); Color,Urine YELLOW (Yellow); Glucose,Urine (UA) Negative (Negative); Ketones,Urine Negative (Negative); Leukocyte Esterase,Urine 1+ (Negative); Nitrate,Urine Negative (Negative); Protein,Urine Negative (Negative); Specific Gravity, Urine 1.015 (1.005-1.030); Urobilinogen,Urine 0.2 EU/dl (0.2)
[2017-10-21 13:56] LABS: Bacteria,Urine 1+ /lpf
[2017-10-21 14:40] VITALS: BP 156/68; PULSE 83; RESP 18; TEMP 36.2; O2SAT 100
[2017-10-21 14:55] VITALS: BP 166/64; PULSE 83; RESP 18
[2017-10-21 15:10] VITALS: BP 170/70; PULSE 82; RESP 18
[2017-10-21 15:25] VITALS: BP 159/75; PULSE 82; RESP 18
[2017-10-21 15:30] VITALS: BP 159/75; PULSE 82; RESP 18
== END 2017-10-21 15:30 | disposition home or self-care (01) ==
LOC: INF 13:07
PROVIDERS: Family Provider Nurse Practitioner Family; PCP Emergency Medicine; Visit Provider Internal Medicine
DX: Z51.11 Encounter for antineoplastic chemotherapy (principal); C18.0 Malignant neoplasm of cecum; R82.90 Unspecified abnormal findings in urine
CPT/HCPCS: 81001; 85025; 87086; 87088; 87186; 96413; J9035

== ENCOUNTER → 2017-10-28 11:00 | Outpatient (POV) | payer MEDICARE, MEDICAID, SELFPAY | PROVIDERS: Family Provider Nurse Practitioner Family; PCP Emergency Medicine; Visit Provider Internal Medicine | DX: Z00.00 Encounter for general adult medical examination without abnormal findings (principal) ==

== ENCOUNTER 2017-11-04 10:27 | Outpatient (CLI) | payer MEDICARE, MEDICAID, SELFPAY ==
[2017-11-04 10:25] VITALS: BMI 22.3
[2017-11-04 10:50] LABS: Microscopic, Urine URINE MICROSCOPIC (MICROSCOPIC)
[2017-11-04 10:52] LABS: Appearance,Urine CLEAR (Clear); Bilirubin,Urine Negative (Negative); Blood, Urine Negative (Negative); Color,Urine YELLOW (Yellow); Glucose,Urine (UA) Negative (Negative); Ketones,Urine Negative (Negative); Leukocyte Esterase,Urine Negative (Negative); Nitrate,Urine Negative (Negative); PH,Urine 5.5 (5.0-8.5); Protein,Urine Negative (Negative); Specific Gravity, Urine 1.025 (1.005-1.030); Urobilinogen,Urine 0.2 EU/dl (0.2)
[2017-11-04 10:53] LABS: Basophils % 0.7 % (0.1-2.0); Eosinophils # 0.3 K/mm3 (0.0-0.4); Eosinophils % 8.4 % (0.1-12.0); Hematocrit 31.6 % (37.0-47.0); Lymphocytes % 33.3 K/mm3 (10-50); Mean Corpuscular HGB Conc 31.7 g/dL (31.8-35.4); Mean Corpuscular Hemoglobin 26.5 pg (27.0-31.2); Mean Corpuscular Volume 83.6 fl (81-99); Mean Platelet Volume 7.4 fl (7.4-10.4); Monocytes # 0.2 K/mm3 (0.1-1.0); Monocytes % 5.2 % (1.7-9.3); Neutrophils # 1.6 K/mm3 (1.8-7.8); Neutrophils % 52.3 % (37.0-80.0); Platelet Count 224 K/mm3 (142-424); Red Blood Count 3.78 M/mm3 (4.20-5.40); Red Cell Distribution Width 21.2 % (11.5-17.5)
[2017-11-04 11:00] LABS: Bacteria,Urine Trace /lpf; Mucus,Urine 4+ /lpf; Squamous Epithelial Cell,Urine Occasional #/hpf (0-5); WBC,Urine Occasional #/hpf (0-3)
[2017-11-04 11:13] LABS: Blood Urea Nitrogen 9 mg/dL (7-18); Creatinine Clearance Estimated 42 mL/min (0-300); Creatinine,Serum 0.69 mg/dL (0.55-1.02); Estimated Glomerular Filt Rate 83 ml/min (>60); GFR (African American) 100 ML/MIN (>60)
[2017-11-04 11:35] VITALS: BP 133/99; PULSE 68; RESP 20; TEMP 37.1; O2SAT 96
[2017-11-04 12:05] VITALS: BP 128/78; PULSE 68; RESP 20; TEMP 36.9; O2SAT 96
== END 2017-11-04 12:10 | disposition home or self-care (01) ==
LOC: INF 10:27
PROVIDERS: Family Provider Nurse Practitioner Family; PCP Emergency Medicine; Visit Provider Internal Medicine Medical Oncology
DX: Z51.11 Encounter for antineoplastic chemotherapy (principal); C18.9 Malignant neoplasm of colon, unspecified
CPT/HCPCS: 81001; 82565; 84520; 85025; 96413; J9035

== ENCOUNTER → 2017-11-06 10:17 | Outpatient (CLI) | payer MEDICARE, MEDICAID, SELFPAY ==
--- NOTE | 2017-11-06 10:20 | MR_ITS ---
MR head/brain wo/w con HISTORY: Metastatic colon cancer to liver and lung. Evaluate for brain metastasis ITS.REASON: COLON CANCER ORDERING PHYSICIAN: Barby Verma MD PATIENT AGE: 77 years Comparison: None TECHNIQUE: Standard multiplanar multiecho sequences are performed without and with gadolinium enhancement. FINDINGS: No midline shift, mass effect, intracranial hemorrhage, or hydrocephalus. No enhancing lesions are evident. No mass effect. There is mild generalized atrophy with nonspecific periventricular and subcortical T2 white matter hyperintensities consistent with ischemic microvascular changes. The pituitary gland is unremarkable The cerebellopontine angles, cerebellum, and brainstem are unremarkable. The calvarium has an unremarkable appearance. No mastoid effusion or sinus air-fluid level. IMPRESSION: 1. No evidence of brain metastasis 2. Atrophy with chronic ischemic gliotic change
== END ==
PROVIDERS: Family Provider Nurse Practitioner Family; PCP Emergency Medicine; Visit Provider Internal Medicine Medical Oncology
DX: Z03.89 Encounter for observation for other suspected diseases and conditions ruled out (principal); R26.9 Unspecified abnormalities of gait and mobility; C18.9 Malignant neoplasm of colon, unspecified; C78.7 Secondary malignant neoplasm of liver and intrahepatic bile duct
CPT/HCPCS: 70553; A9576

== ENCOUNTER 2017-11-18 11:09 | Outpatient (CLI) | payer MEDICARE, MEDICAID, SELFPAY ==
[2017-11-18 11:12] VITALS: BMI 20.9
[2017-11-18 11:45] LABS: Appearance,Urine CLEAR (Clear); Bilirubin,Urine Negative (Negative); Blood, Urine Negative (Negative); Color,Urine YELLOW (Yellow); Glucose,Urine (UA) Negative (Negative); Ketones,Urine Negative (Negative); Leukocyte Esterase,Urine Negative (Negative); Microscopic, Urine URINE MICROSCOPIC (MICROSCOPIC); Nitrate,Urine Negative (Negative); Protein,Urine Negative (Negative); Urobilinogen,Urine 0.2 EU/dl (0.2)
[2017-11-18 11:47] LABS: Basophils % 1.1 % (0.1-2.0); Eosinophils # 0.4 K/mm3 (0.0-0.4); Eosinophils % 13.3 % (0.1-12.0); Hematocrit 33.8 % (37.0-47.0); Hemoglobin 10.6 g/dL (12.2-16.2); Lymphocytes # 0.7 K/mm3 (0.7-4.5); Lymphocytes % 21.7 K/mm3 (10-50); Mean Corpuscular HGB Conc 31.5 g/dL (31.8-35.4); Mean Corpuscular Hemoglobin 27.4 pg (27.0-31.2); Mean Corpuscular Volume 87.1 fl (81-99); Mean Platelet Volume 7.5 fl (7.4-10.4); Monocytes # 0.2 K/mm3 (0.1-1.0); Monocytes % 6.8 % (1.7-9.3); Neutrophils # 1.8 K/mm3 (1.8-7.8); Neutrophils % 57.1 % (37.0-80.0); Platelet Count 284 K/mm3 (142-424); Red Blood Count 3.88 M/mm3 (4.20-5.40); Red Cell Distribution Width 23.7 % (11.5-17.5); White Blood Count 3.1 K/mm3 (4.8-10.8)
[2017-11-18 12:22] LABS: Bacteria,Urine Trace /lpf; Mucus,Urine 3+ /lpf; RBC,Urine Occasional #/hpf (0-3); WBC,Urine Occasional #/hpf (0-3)
[2017-11-18 12:30] LABS: Creatinine Clearance Estimated 42 mL/min (0-300); Estimated Glomerular Filt Rate 97 ml/min (>60); GFR (African American) 118 ML/MIN (>60)
[2017-11-18 12:38] LABS: Blood Urea Nitrogen 8 mg/dL (7-18)
[2017-11-18 12:43] VITALS: BP 154/72; PULSE 96; RESP 18; TEMP 36.4; O2SAT 95
[2017-11-18 13:13] VITALS: BP 156/77; PULSE 94; RESP 18; O2SAT 96
[2017-11-18 13:25] VITALS: BP 162/74; PULSE 92; RESP 18; O2SAT 96
== END 2017-11-18 13:30 | disposition home or self-care (01) ==
LOC: INF 11:11
PROVIDERS: PCP Emergency Medicine; Visit Provider Internal Medicine Medical Oncology
DX: Z51.11 Encounter for antineoplastic chemotherapy (principal); C18.9 Malignant neoplasm of colon, unspecified
CPT/HCPCS: 81001; 82565; 84520; 85025; 96413; J9035

== ENCOUNTER → 2017-11-24 08:42 | Outpatient (CLI) | payer MEDICARE, MEDICAID, SELFPAY ==
--- NOTE | 2017-11-24 08:43 | CT_ITS ---
CT chest w con HISTORY: Colon cancer follow-up ITS.REASON: colon cancer ORDERING PHYSICIAN: Barby Verma MD PATIENT AGE: 77 years COMPARISON: 07/22/2017 TECHNIQUE: Axial images obtained following the administration of 75 mL of Isovue 370 . Sagittal, and coronal reformatted images are also generated and reviewed. All CT scans at the facility use one or more dose reduction, viz: automated exposure control, ma/kV adjustment per patient size (including targeted exams where dose is matched to indication, i.e. head), or iterative reconstruction technique. FINDINGS: Left lobe of the thyroid gland is enlarged containing an enhancing 19 mm nodule. This appears somewhat smaller than when compared to the previous exam however, that study was performed without contrast. Previous of the nodule is approximately 2.2 cm. No mediastinal or hilar mass or hilar adenopathy is evident. There are coronary artery calcifications as well as atherosclerotic calcification of the aorta. No evidence of pericardial effusion. Centrilobular paraseptal emphysematous changes are once again noted. Cavitating nodule once again noted in the left upper lobe not significantly changed at 19 x 17 mm Multiple bilateral noncalcified pulmonary nodules are present consistent with pulmonary metastasis. Some of these nodules are slightly smaller when compared to the previous exam. For instance, a nodule in the right middle lobe measures 2.5 x 2.5 cm previously measuring 3.2 x 2.8 cm. There is some minimal cavitation now within this nodule anteriorly. A nodule in the right lung base laterally may be slightly less bulky. This nodule measures 2.9 x 2.6 cm. A nodule in the left lower lobe posteriorly measures 1.3 x 1.3 cm and is larger compared to the previous exam previously measuring 1.1 x 1.1 cm. This nodule also contains some minimal cavitation No effusions are evident. No new nodules are identified. No bony destructive process. IMPRESSION: 1. The findings are consistent with pulmonary metastasis. There is a mixed response with most of the nodules unchanged or slightly smaller except for one nodule in the left lower lobe which is slightly larger. 2. The left-sided thyroid nodule is once again noted but slightly smaller. 3. Centrilobular emphysema. Left upper lobe cavitating nodule is not significantly changed
--- NOTE | 2017-11-24 08:43 | CT_ITS ---
CT abdomen pelvis w con CLINICAL INDICATION: Follow-up colon cancer ITS.REASON: colon cancer ORDERING PHYSICIAN: Barby Verma MD PATIENT AGE: 77 years COMPARISON: 08/05/2017 TECHNIQUE: Axial images obtained with sagittal and coronal reformats. All CT scans at the facility use one or more dose reduction, viz: automated exposure control, ma/kV adjustment per patient size (including targeted exams where dose is matched to indication, i.e. head), or iterative reconstruction technique. PROCEDURE: Oral Contrast: Redicat IV Contrast: 75 mL's of Isovue-370 performed in conjunction with the chest CT. FINDINGS: There are multiple liver lesions. As are somewhat difficult to compare to the previous exam as that study was performed without contrast. The largest lesion is in the right hepatic lobe posteriorly measuring 6.6 x 5 cm not significantly changed. This has more of a cystic appearance compared to the other lesions. There is a 2.7 x 2.5 cm lesion in the right hepatic lobe and early. This previously measured 2.7 x 2 cm. This lesion does appear slightly larger. The next largest lesion is in the left hepatic lobe at 3 x 2 cm previously 3.6 x 2.6 cm. There are other smaller lesions which are not readily apparent on the previous exam which could be due to the lack of contrast. There is a 7 mm nodule in the left hepatic lobe inferiorly not previously identified. Spleen, adrenal glands, pancreas, and left kidney are unremarkable. There is cortical scarring of the right kidney. Prior hysterectomy. No pelvic mass or abnormal fluid collection is evident. There has been prior vertebroplasty at L5. No bony destructive process. IMPRESSION: Hepatic metastasis with a mixed response. Some lesions are larger and some lesions are smaller. Please see above for detail. There does appear to be a new nodule in the left hepatic lobe inferiorly at 7 mm.
== END ==
PROVIDERS: Family Provider Nurse Practitioner Family; PCP Emergency Medicine; Visit Provider Internal Medicine Medical Oncology
DX: C18.9 Malignant neoplasm of colon, unspecified (principal); C78.00 Secondary malignant neoplasm of unspecified lung
CPT/HCPCS: 71260; 74177; Q9967

== ENCOUNTER 2017-12-02 11:05 | Outpatient (CLI) | payer MEDICARE, MEDICAID, SELFPAY ==
[2017-12-02 11:15] VITALS: BMI 20.5
[2017-12-02 11:53] LABS: Basophils % 0.9 % (0.1-2.0); Eosinophils # 0.3 K/mm3 (0.0-0.4); Eosinophils % 6.4 % (0.1-12.0); Hematocrit 35.4 % (37.0-47.0); Hemoglobin 10.9 g/dL (12.2-16.2); Lymphocytes # 1.2 K/mm3 (0.7-4.5); Lymphocytes % 31.2 K/mm3 (10-50); Mean Corpuscular HGB Conc 30.9 g/dL (31.8-35.4); Mean Corpuscular Hemoglobin 27.6 pg (27.0-31.2); Mean Corpuscular Volume 89.3 fl (81-99); Monocytes # 0.2 K/mm3 (0.1-1.0); Monocytes % 6.1 % (1.7-9.3); Neutrophils # 2.2 K/mm3 (1.8-7.8); Neutrophils % 55.4 % (37.0-80.0); Platelet Count 227 K/mm3 (142-424); Red Blood Count 3.97 M/mm3 (4.20-5.40); Red Cell Distribution Width 22.8 % (11.5-17.5)
[2017-12-02 12:14] LABS: Microscopic, Urine URINE MICROSCOPIC (MICROSCOPIC)
[2017-12-02 12:17] LABS: Appearance,Urine CLEAR (Clear); Bilirubin,Urine Negative (Negative); Blood, Urine Negative (Negative); Color,Urine YELLOW (Yellow); Glucose,Urine (UA) Negative (Negative); Ketones,Urine Negative (Negative); Leukocyte Esterase,Urine Negative (Negative); Nitrate,Urine Negative (Negative); Protein,Urine Negative (Negative); Urobilinogen,Urine 0.2 EU/dl (0.2)
[2017-12-02 12:23] LABS: Bacteria,Urine Trace /lpf
[2017-12-02 13:15] VITALS: BP 153/71; PULSE 80; RESP 18; TEMP 36.6; O2SAT 100
[2017-12-02 13:30] VITALS: BP 141/100; PULSE 79; RESP 18; O2SAT 99
[2017-12-02 13:45] VITALS: BP 143/68; PULSE 77; RESP 18; O2SAT 99
[2017-12-02 14:00] VITALS: BP 153/70; PULSE 75; RESP 18; O2SAT 99
== END 2017-12-02 14:00 | disposition home or self-care (01) ==
LOC: INF 11:14
PROVIDERS: Visit Provider Internal Medicine Medical Oncology
DX: C18.9 Malignant neoplasm of colon, unspecified (principal); Z51.11 Encounter for antineoplastic chemotherapy
CPT/HCPCS: 81001; 85025; 96413; J9035

== ENCOUNTER → 2017-12-09 12:41 | Outpatient (POV) | payer MEDICARE, MEDICAID, SELFPAY | PROVIDERS: Family Provider Nurse Practitioner Family; PCP Emergency Medicine; Visit Provider Internal Medicine | DX: Z00.00 Encounter for general adult medical examination without abnormal findings (principal) ==

== ENCOUNTER → 2017-12-15 15:18 | Outpatient (CLI) | payer MEDICARE, MEDICAID, SELFPAY ==
[2017-12-15 15:23] LABS: Microscopic, Urine URINE MICROSCOPIC (MICROSCOPIC)
[2017-12-15 16:11] LABS: Basophils % 0.4 % (0.1-2.0); Eosinophils # 0.1 K/mm3 (0.0-0.4); Eosinophils % 3.8 % (0.1-12.0); Hematocrit 30.9 % (37.0-47.0); Hemoglobin 9.8 g/dL (12.2-16.2); Lymphocytes # 0.9 K/mm3 (0.7-4.5); Mean Corpuscular HGB Conc 31.7 g/dL (31.8-35.4); Mean Corpuscular Hemoglobin 29.3 pg (27.0-31.2); Mean Corpuscular Volume 92.4 fl (81-99); Mean Platelet Volume 7.4 fl (7.4-10.4); Monocytes # 0.2 K/mm3 (0.1-1.0); Monocytes % 5.4 % (1.7-9.3); Neutrophils # 2.5 K/mm3 (1.8-7.8); Neutrophils % 66.4 % (37.0-80.0); Platelet Count 277 K/mm3 (142-424); Red Blood Count 3.34 M/mm3 (4.20-5.40); White Blood Count 3.8 K/mm3 (4.8-10.8)
[2017-12-15 16:12] LABS: Red Cell Distribution Width 25.8 % (11.5-17.5)
[2017-12-15 18:03] LABS: Appearance,Urine CLEAR (Clear); Bilirubin,Urine Negative (Negative); Blood, Urine Negative (Negative); Color,Urine YELLOW (Yellow); Glucose,Urine (UA) Negative (Negative); Ketones,Urine Negative (Negative); Leukocyte Esterase,Urine Negative (Negative); Nitrate,Urine Negative (Negative); Protein,Urine Negative (Negative); Specific Gravity, Urine 1.015 (1.005-1.030); Urobilinogen,Urine 0.2 EU/dl (0.2)
[2017-12-15 18:19] LABS: Bacteria,Urine 1+ /lpf; RBC,Urine Occasional #/hpf (0-3); WBC,Urine Occasional #/hpf (0-3)
== END ==
PROVIDERS: PCP Emergency Medicine; Visit Provider Internal Medicine Medical Oncology
DX: C18.9 Malignant neoplasm of colon, unspecified (principal)
CPT/HCPCS: 36415; 81001; 85025

== ENCOUNTER 2017-12-16 08:36 | Outpatient (CLI) | payer MEDICARE, MEDICAID, SELFPAY ==
[2017-12-16 09:35] VITALS: BP 195/86; PULSE 66; RESP 20; TEMP 36.9; O2SAT 96
[2017-12-16 10:00] VITALS: BP 182/78; PULSE 68; RESP 20; TEMP 36.9; O2SAT 95
[2017-12-16 10:10] VITALS: BP 186/84; PULSE 84; RESP 20; TEMP 36.9; O2SAT 94
== END 2017-12-16 10:15 | disposition home or self-care (01) ==
LOC: INF 08:36
PROVIDERS: Family Provider Nurse Practitioner Family; PCP Emergency Medicine; Visit Provider Internal Medicine Medical Oncology
DX: Z51.11 Encounter for antineoplastic chemotherapy (principal); C18.9 Malignant neoplasm of colon, unspecified
CPT/HCPCS: 96413; J9035

== ENCOUNTER → 2017-12-26 12:05 | Outpatient (CLI) | payer MEDICARE, MEDICAID, SELFPAY ==
[2017-12-26 14:29] LABS: Basophils # 0.1 K/mm3 (0-0.2); Basophils % 1.1 % (0.1-2.0); Eosinophils # 0.3 K/mm3 (0.0-0.4); Eosinophils % 5.7 % (0.1-12.0); Hematocrit 36.6 % (37.0-47.0); Hemoglobin 10.9 g/dL (12.2-16.2); Lymphocytes # 1.5 K/mm3 (0.7-4.5); Lymphocytes % 34.2 K/mm3 (10-50); Mean Corpuscular HGB Conc 29.7 g/dL (31.8-35.4); Mean Corpuscular Hemoglobin 28.3 pg (27.0-31.2); Mean Corpuscular Volume 95.4 fl (81-99); Mean Platelet Volume 8.1 fl (7.4-10.4); Monocytes # 0.2 K/mm3 (0.1-1.0); Monocytes % 4.9 % (1.7-9.3); Neutrophils # 2.3 K/mm3 (1.8-7.8); Neutrophils % 54.1 % (37.0-80.0); Platelet Count 252 K/mm3 (142-424); Red Blood Count 3.83 M/mm3 (4.20-5.40); Red Cell Distribution Width 24.6 % (11.5-17.5); White Blood Count 4.3 K/mm3 (4.8-10.8)
[2017-12-26 14:52] LABS: Anion Gap 12.4 mEq/L (5-15); Blood Urea Nitrogen 12 mg/dL (7-18); Calcium 9.2 mg/dL (8.5-10.1); Carbon Dioxide 30 mmol/L (21.0-32.0); Chloride 107 mmol/L (98-107); Creatinine,Serum 0.63 mg/dL (0.55-1.02); Estimated Glomerular Filt Rate 92 ml/min (>60); GFR (African American) 111 ML/MIN (>60); Glucose 74 mg/dL (74-106); Potassium 4.4 mmoL/L (3.5-5.1); Sodium 145 mmol/L (136-145)
== END ==
PROVIDERS: PCP Emergency Medicine; Visit Provider Surgery
DX: C18.9 Malignant neoplasm of colon, unspecified (principal)
CPT/HCPCS: 36415; 80048; 85025

== ENCOUNTER → 2017-12-29 15:37 | Outpatient (POV) | payer MEDICARE, MEDICAID, SELFPAY ==
[2017-12-29 15:44] VITALS: BP 198/77; PULSE 108; RESP 20; O2SAT 97
--- NOTE | 2017-12-30 08:42 | HMH.PMCON ---
Assessment and Plan (1) Colon cancer metastasized to liver Current visit: No Status: Chronic Category: Medical Code(s): C18.9 - Malignant neoplasm of colon, unspecified; C78.7 - Secondary malignant neoplasm of liver and intrahepatic bile duct - Assessment and plan all Dx Assessment and Plan for all problems:: We will start the patient on oxycodone 10 mg 1 p.o. 3 times daily. We will see her back in 1 month and reassess her symptoms at that time. Patient and I did briefly discuss an intrathecal pain pump. Patient would like to see how medication does previous to making this decision. Dr. Rodriguez is reviewed this chart and agrees with this plan of care. I will follow-up with the patient in 1 month Patient has been prescribed a controlled substance after being counseled on the medication, medication safety, and possible side effects. BARBARA report has been obtained and reviewed prior to prescription and found to be appropriate. Opioid contract was reviewed and signed by the patient, and that they have agreed to all of the terms set forth by our compliance program. This note was dictated using voice recognition software and may contain errors or omissions HPI - Data of Consult Consult date: 12/29/17 Requesting Physician: Susanne Savage APRN Primary Care Provider: Philippe Schulz APRN - Consult Narrative Reason for consult: Cancer pain History of present illness: Ms. Maradiaga is a 77 year old female who presents today for consultation in regards to pain secondary to colon cancer with metastases to the liver and lungs. Patient was recently diagnosed with colon cancer. Patient is undergoing chemo treatment at this time. Patient has been seeing an oncologist here at [facility]. Patient states that her pain comes and goes in waves. She rates her pain an 8 out of 10 at this time she states all activity increases her pain while nothing really decreases it. She states that she has extreme stomach cramps. Patient is on oxycodone 5 twice daily from her primary care physician. Patient states that this is not beneficial for her. She denies side effects to it. Patient's BARBARA [id number] reviewed and appropriate. CC: Susanne Savage APRN [facility] History I have reviewed the patient's past medical history: Yes Medical History: Reports:: Anxiety, Asthma, Cancer, Chronic Obstructive Pulmonary Disease (COPD), Hypertension Denies:: Diabetes Mellitus Type 1, Diabetes Mellitus Type 2, MRSA Other Surgeries: Yes: Colonoscopy, EGD, Hernia Repair, Hysterectomy-Partial, Other Amputation: No Fractures: No - *Social History Smoking Status: Never smoker Tobacco Type: cigarettes Alcohol Intake: never Substance Use Type: denies use Occupational Status: unemployed Housing: house Household Members: spouse - Psychiatric History Expresses thoughts of harming self/others: None Suicide Plan Description: No Plan Pschychiatric History:: Reports:: Anxiety *Family Hx:: No significant family history Review of Systems - Review of Systems ROS General: no recent weight change, no fever, no sleep disturbances Respiratory: shortness of breath, cough, O2 use Cardiovascular/Peripheral Vascular: No chest pain, No palpitations, no edema, no shortness of breath. Gastrointestinal: no incontinence, normal bowel movements reported Genitourinary: no incontinence Musculoskeletal: Abdominal pain, back pain Psychiatric: normal mood/ affect, Neurological: [denies weakness in extremities], [denies balance issues] Meds Home Medications Medication Instructions Recorded Confirmed Type capecitabine 500 mg tablet 1,500 mg PO Q12H tab 09/24/17 12/26/17 History ondansetron HCl 8 mg tablet 8 mg PO Q8H PRN tab 09/24/17 12/26/17 History Allergies Allergy/AdvReac Type Severity Reaction Status Date / Time Corticosteroids Allergy Anaphylaxis Verified 12/26/17 11:12 (Glucocorticoids) Objective Vital signs: P
--- NOTE | 2017-12-30 08:45 | P.CONS_ITS ---
Assessment and Plan (1) Colon cancer metastasized to liver Current visit: No Status: Chronic Category: Medical Code(s): C18.9 - Malignant neoplasm of colon, unspecified; C78.7 - Secondary malignant neoplasm of liver and intrahepatic bile duct - Assessment and plan all Dx Assessment and Plan for all problems:: We will start the patient on oxycodone 10 mg 1 p.o. 3 times daily. We will see her back in 1 month and reassess her symptoms at that time. Patient and I did briefly discuss an intrathecal pain pump. Patient would like to see how medication does previous to making this decision. Dr. Rodriguez is reviewed this chart and agrees with this plan of care. I will follow-up with the patient in 1 month Patient has been prescribed a controlled substance after being counseled on the medication, medication safety, and possible side effects. BARBARA report has been obtained and reviewed prior to prescription and found to be appropriate. Opioid contract was reviewed and signed by the patient, and that they have agreed to all of the terms set forth by our compliance program. This note was dictated using voice recognition software and may contain errors or omissions HPI - Data of Consult Consult date: 12/29/17 Requesting Physician: Susanne Savage APRN Primary Care Provider: Philippe Schulz APRN - Consult Narrative Reason for consult: Cancer pain History of present illness: Ms. Maradiaga is a 77 year old female who presents today for consultation in regards to pain secondary to colon cancer with metastases to the liver and lungs. Patient was recently diagnosed with colon cancer. Patient is undergoing chemo treatment at this time. Patient has been seeing an oncologist here at [facility]. Patient states that her pain comes and goes in waves. She rates her pain an 8 out of 10 at this time she states all activity increases her pain while nothing really decreases it. She states that she has extreme stomach cramps. Patient is on oxycodone 5 twice daily from her primary care physician. Patient states that this is not beneficial for her. She denies side effects to it. Patient's BARBARA [id number] reviewed and appropriate. CC: Susanne Savage APRN [facility] History I have reviewed the patient's past medical history: Yes Medical History: Reports:: Anxiety, Asthma, Cancer, Chronic Obstructive Pulmonary Disease (COPD), Hypertension Denies:: Diabetes Mellitus Type 1, Diabetes Mellitus Type 2, MRSA Other Surgeries: Yes: Colonoscopy, EGD, Hernia Repair, Hysterectomy-Partial, Other Amputation: No Fractures: No - *Social History Smoking Status: Never smoker Tobacco Type: cigarettes Alcohol Intake: never Substance Use Type: denies use Occupational Status: unemployed Housing: house Household Members: spouse - Psychiatric History Expresses thoughts of harming self/others: None Suicide Plan Description: No Plan Pschychiatric History:: Reports:: Anxiety *Family Hx:: No significant family history Review of Systems - Review of Systems ROS General: no recent weight change, no fever, no sleep disturbances Respiratory: shortness of breath, cough, O2 use Cardiovascular/Peripheral Vascular: No chest pain, No palpitations, no edema, no shortness of breath. Gastrointestinal: no incontinence, normal bowel movements reported Genitourinary: no incontinence Musculoskeletal: Abdominal pain, back pain Psychiatric: normal mood/ affect, Neurological: [denies weakness in extremities], [denies balance issues] Meds
== END ==
PROVIDERS: PCP Nurse Practitioner Family; Visit Provider Clinical Nurse Specialist Family Health
DX: C18.9 Malignant neoplasm of colon, unspecified (principal); C78.7 Secondary malignant neoplasm of liver and intrahepatic bile duct
CPT/HCPCS: 99202

== ENCOUNTER → 2018-01-16 07:59 | Outpatient (CLI) | payer MEDICARE, MEDICAID, SELFPAY ==
[2018-01-16 08:36] LABS: Blood Urea Nitrogen 14 mg/dL (7-18); Creatinine,Serum 0.67 mg/dL (0.55-1.02); Estimated Glomerular Filt Rate 86 ml/min (>60); GFR (African American) 104 ML/MIN (>60)
--- NOTE | 2018-01-16 08:46 | CT_ITS ---
CT chest w con INDICATION: Follow-up progression of known pulmonary metastatic disease ITS.REASON: COLON CA ORDERING PHYSICIAN: Barby Verma MD PATIENT AGE: 77 years COMPARISON: CT Chest 11-24-2017 TECHNIQUE: Axial images obtained with sagittal and coronal reformats. All CT scans at the facility use one or more dose reduction, viz: automated exposure control, ma/kV adjustment per patient size (including targeted exams where dose is matched to indication, i.e. head), or iterative reconstruction technique. FINDINGS: The small nodule in the left lobe of the thyroid is basically stable. The lung hardy are somewhat hyperexpanded and there are findings of centrilobular emphysema most prominent in the upper lobes. Again noted are multiple bilateral pulmonary metastatic nodules. There is stable apical pleural scarring right apex. The subpleural nodule in the posterior basal segment left lower lobe now measures 10.6 mm x 10.6 mm where as previously it measured 13.4 x 13.4 mm.. There has been interval decrease in size and now with partial cavitation of the right suprahilar pulmonary nodule seen at the level of the aortic arch now measuring 9 mm in diameter. The pleural-based nodule right upper lobe which measures 16.7 x 13.7 mm on the previous exam now measures 14.5 x 13.0 mm. The partially cavitated nodule subpleural location right middle lobe measures 22.5 mm x 20.8 mm axial image whereas previously it measured 26.8 mm x 22.2 mm. The subpleural nodule lateral basilar segment right lower lobe measures 19.7 mm x 26.9 mm where as previously it measured 28.8 x 26.0 mm. There is no abnormal superior mediastinal or hilar lymphadenopathy. Cardiac size is borderline. IMPRESSION: Slight interval decrease in size of all of the pulmonary nodules and with no new pulmonary nodule since the previous exam. Interval cavitation of the small pulmonary nodule right upper lobe at the level of the aortic arch. Stable emphysematous changes as noted
--- NOTE | 2018-01-16 08:46 | CT_ITS ---
CT abdomen pelvis w con CLINICAL HISTORY: Known colon cancer recently completed chemotherapy TECHNIQUE: Axial images obtained with sagittal and coronal reformats. All CT scans at the facility use one or more dose reduction, viz: automated exposure control, ma/kV adjustment per patient size (including targeted exams where dose is matched to indication, i.e. head), or iterative reconstruction technique. COMPARISON: CT scan abdomen pelvis with IV and oral contrast 11/24/2017 PROCEDURE: Oral Contrast:Given IV Contrast: 90 ml IV Isovue 370 was injected intravenously. FINDINGS: Lung bases: See CT scan the chest report ABDOMEN: Liver: The liver is normal size. Again noted are multiple hypodense lesions the largest of which is in the posterior aspect of the right lobe measuring 6.7 x 5.2 x 4.5 cm and basically stable from previous exam. The next lesion is in the lateral segment of the left lobe measuring 2.2 x 2.8 x 2.0 cm only slightly smaller than the previous exam. There is a somewhat lobulated hypodense lesion in the inferior aspect of the right lobe measuring 2.4 x 2.5 x 2.5 cm which has shown slight interval decrease in size from the previous exam. Several smaller lesions are seen in these are basically stable. There are no definite new liver lesions identified. Gallbladder: The gallbladder is markedly contracted secondary to large amount of food particles seen within the stomach.. No obvious gallstones seen. Pancreas: No masses or peripancreatic fluid collections. Spleen: Unremarkable. Adrenals: Unremarkable Kidneys/ureters: The kidneys are normal size, there is mild cortical lobulation and/or scarring of the right kidney, there is no obstructive uropathy of either kidney. Stomach bowel: The stomach is distended with ingested food particles and oral contrast. The contrast-filled loops of small bowel appear grossly normal. I do not definitely identify the appendix but there are no pericecal inflammatory changes. There is large amount stool in the cecum and ascending colon and transverse colon. Peritoneum: No abnormal fluid collections. No obvious inflammatory changes. Lymph nodes: No enlarged lymph nodes apparent. Vasculature: There is marked arteriosclerotic calcification of the abdominal aorta and proximal common iliac arteries. There is no definite aneurysm. Bones: There is been previous vertebroplasty L5 vertebral body PELVIS: Reproductive: Prior hysterectomy Bladder: The bladder is well distended with urine, there is no free fluid in the pelvis. Appendix: Not definitely visualize IMPRESSION: Multiple hepatic metastasis most of which have shown slight interval decrease in size with no definite new liver lesions seen on this exam
--- NOTE | 2018-01-16 09:23 | HMH.ITSHM ---
Current Home Medications as stated by this patient Johanna Maradiaga or member service representative. []CHOLESTEROL
== END ==
PROVIDERS: Visit Provider Internal Medicine Medical Oncology
DX: C18.9 Malignant neoplasm of colon, unspecified (principal)
CPT/HCPCS: 36415; 71260; 74177; 82565; 84520; Q9967

== ENCOUNTER → 2018-01-19 10:42 | Outpatient (POV) | payer MEDICARE, MEDICAID, SELFPAY ==
[2018-01-19 11:08] VITALS: BP 183/85; PULSE 92; RESP 18; O2SAT 98; BMI 18.8
--- NOTE | 2018-01-19 11:14 | HMH.PAINSOAP ---
[facility] Pain Management SOAP Note Subjective:: She is a pleasant 77-year-old white female who presents today for medication refills. Patient was started on oxycodone 10 mg 1 p.o. 3 times daily for pain secondary to colon cancer with metastasis to the liver and lungs. Patient states today that she has taken an additional 20 pills. We have some serious concerns regards to her breathing issues. Patient is on home oxygen. She is also on Valium. Patient and I discussed after I spoke with Dr. Rodriguez that we would not be able to continue her on her oxycodone at this time. I will give her a one-month prescription of a decreased dose in order for her to get to her oncologist. Patient states she is uninterested in an intrathecal pain pump. I do wonder if hospice would be appropriate given her changing pain needs. Patient did make a statement to the nurse that she would buy pills off the street if she did not receive more medication. ROS General: no recent weight change, no fever, no sleep disturbances Respiratory: Shortness of air at times, continuous O2 use Cardiovascular/Peripheral Vascular: No chest pain, No palpitations, no edema, Gastrointestinal: no new onset incontinence Genitourinary: no new onset incontinence Musculoskeletal: Generalized pain, abdominal pain, back pain Psychiatric: normal mood/ affect Neurological: [denies weakness in extremities], [denies balance issues] Objective:: Physical Exam General: Alert and oriented x3, no acute distress, pleasant and cooperative, on room air Lungs: Resps E/U, Symmetrical chest expansion, Eyes: PERRL Musculoskeletal: Flexion and extension of lumbar spine somewhat guarded secondary to pain, [abnormal gait noted] Neurological: speech clear, clinical information systems director equal, no gross sensory deficits Assessment:: Colon cancer with metastasis to the liver Plan:: I gave the patient information on a intrathecal pain pump. Patient states she is uninterested in this. We will decrease her medication oxycodone 10 mg 1 p.o. twice daily. Patient understands she will not be receiving any more medication from our office. Dr. Rodriguez has reviewed this chart and agrees with this plan of care. This note was dictated using voice recognition software and may contain errors or omissions
== END ==
PROVIDERS: PCP Emergency Medicine; Visit Provider Clinical Nurse Specialist Family Health
DX: C18.9 Malignant neoplasm of colon, unspecified (principal); C78.7 Secondary malignant neoplasm of liver and intrahepatic bile duct
CPT/HCPCS: 99213

== ENCOUNTER → 2018-01-23 11:19 | Outpatient (CLI) | payer MEDICARE, MEDICAID, SELFPAY ==
--- NOTE | 2018-01-23 11:23 | NVE_ITS ---
Venous Exam Indications: POST PORT PLACEMENT. 729.5 Pain in limb. IMPRESSIONS 1. There is no evidence of significant reflux. 2. No evidence of deep or superficial vein thrombosis involving the veins of the left upper extremity Left upper extremity venous duplex. Doppler flow study including spectral analysis, color and sen scale imaging. Location: Vascular laboratory. Patient status: Outpatient. CRITICAL FINDINGS - Reported to: ANA - Read back and verified. - 01/23/18 - 1155 - NONE Tables: Venous flow and imaging: + + + Location Flow properties + + + Left internal jugular Normal phasicity; spontaneous; compressible + + + Left subclavian Normal phasicity; spontaneous; normal augmentation; compressible + + + Left axillary Normal phasicity; spontaneous; normal augmentation; compressible + + + Left brachial Normal phasicity; spontaneous; normal augmentation; compressible + + + Left cephalic Normal phasicity; spontaneous; normal augmentation; compressible + + + Left basilic Normal phasicity; spontaneous ; normal augmentation; compressible + + + Left radial Compressible + + + Left ulnar Compressible + + + Right subclavian Normal phasicity; spontaneous; normal augmentation; compressible + + + (Report amended ) Electronically signed by: Mark Gutierrez [id number]
--- NOTE | 2018-01-23 12:00 | XR_ITS ---
XR chest 2V HISTORY: Port-A-Cath placement ITS.REASON: port placement pain ORDERING PHYSICIAN: Ayo Disla MD PATIENT AGE: 77 years COMPARISON: 01/12/2018 FINDINGS: Status post insertion of left subclavian Port-A-Cath. The tip is in good position in the region of the SVC. There is no evidence of pneumothorax. Bilateral noncalcified pulmonary nodules once again noted consistent with metastatic disease. IMPRESSION: Port-A-Cath tip in the region of the superior vena cava with no change in the pulmonary metastasis
== END ==
PROVIDERS: PCP Nurse Practitioner Family; Visit Provider Surgery
DX: J44.1 Chronic obstructive pulmonary disease with (acute) exacerbation (principal); M79.602 Pain in left arm
CPT/HCPCS: 71046; 93971

== ENCOUNTER → 2018-02-05 15:42 | Outpatient (CLI) | payer MEDICARE, MEDICAID, SELFPAY ==
[2018-02-05 16:35] LABS: Basophils # 0.1 K/mm3 (0-0.2); Basophils % 1.2 % (0.1-2.0); Eosinophils # 0.3 K/mm3 (0.0-0.4); Eosinophils % 4.6 % (0.1-12.0); Hematocrit 38.1 % (37.0-47.0); Hemoglobin 11.8 g/dL (12.2-16.2); Lymphocytes # 1.3 K/mm3 (0.7-4.5); Lymphocytes % 22.2 % (10-50); Mean Corpuscular HGB Conc 31.1 g/dL (31.8-35.4); Mean Corpuscular Hemoglobin 28.8 pg (27.0-31.2); Mean Corpuscular Volume 92.8 fl (81-99); Mean Platelet Volume 7.6 fl (7.4-10.4); Monocytes # 0.3 K/mm3 (0.1-1.0); Monocytes % 5.8 % (1.7-9.3); Neutrophils # 3.7 K/mm3 (1.8-7.8); Neutrophils % 66.2 % (37.0-80.0); Platelet Count 267 K/mm3 (142-424); Red Blood Count 4.11 M/mm3 (4.20-5.40); Red Cell Distribution Width 20.2 % (11.5-17.5); White Blood Count 5.6 K/mm3 (4.8-10.8)
[2018-02-05 17:12] LABS: Alanine Aminotransferase 20 U/L (12-78); Albumin Level 3.9 gm/dL (3.4-5.0); Albumin/Globulin Ratio 1.2 (1.1-1.8); Alkaline Phosphatase 78 U/L (46-116); Anion Gap 14.9 mEq/L (5-15); Aspartate Amino Transferase 18 U/L (15-37); Bilirubin,Total 0.5 mg/dL (0.2-1.0); Blood Urea Nitrogen 17 mg/dL (7-18); Calcium 9.1 mg/dL (8.5-10.1); Carbon Dioxide 28 mmol/L (21.0-32.0); Chloride 102 mmol/L (98-107); Creatinine,Serum 0.65 mg/dL (0.55-1.02); Estimated Glomerular Filt Rate 89 ml/min (>60); GFR (African American) 108 ML/MIN (>60); Globulin 3.2 gm/dl (1.3-3.2); Glucose 96 mg/dL (74-106); Potassium 3.9 mmoL/L (3.5-5.1); Sodium 141 mmol/L (136-145); Total Protein,Serum 7.1 gm/dL (6.4-8.2)
--- NOTE | 2018-02-06 09:37 | DIET.NUTRFU ---
Phone call to patient regarding weight loss, poor appetite. She reports also taste changes. Dx of metastatic cancer and she is receiving treatment at the oncology clinic. Weight loss of approx 5 lbs in the past 6 months. She is on miralax for constipation to prevent abdominal pain. She lives with her son who now prepares meals for her. She is drinking Boost chocolate and strawberry twice a day but states it is getting harder to get these down. Recommended patient try a baking soda/water mouth swish prior to eating meals to improve taste. Discussed acid foods improve taste such as lemonade, pineapple juice, vinegar and tomato juice. Suggested adding ice cream to Boost to make a shake. Will mail recipes for calorie dense protein fortified beverages. Patient encouraged to contact dietitian at the hospital for future assistance.
== END ==
PROVIDERS: Visit Provider Internal Medicine Medical Oncology
DX: C18.9 Malignant neoplasm of colon, unspecified (principal)
CPT/HCPCS: 36415; 80053; 85025

== ENCOUNTER → 2018-02-26 12:33 | Outpatient (CLI) | payer MEDICARE, MEDICAID, SELFPAY ==
[2018-02-26 12:49] LABS: Basophils # 0.1 K/mm3 (0-0.2); Basophils % 1.2 % (0.1-2.0); Eosinophils # 0.2 K/mm3 (0.0-0.4); Hematocrit 37.1 % (37.0-47.0); Hemoglobin 11.3 g/dL (12.2-16.2); Lymphocytes # 1.1 K/mm3 (0.7-4.5); Mean Corpuscular HGB Conc 30.5 g/dL (31.8-35.4); Mean Corpuscular Hemoglobin 28.4 pg (27.0-31.2); Mean Corpuscular Volume 93.3 fl (81-99); Mean Platelet Volume 7.9 fl (7.4-10.4); Monocytes # 0.2 K/mm3 (0.1-1.0); Monocytes % 4.2 % (1.7-9.3); Neutrophils # 2.7 K/mm3 (1.8-7.8); Neutrophils % 64.8 % (37.0-80.0); Platelet Count 275 K/mm3 (142-424); Red Blood Count 3.97 M/mm3 (4.20-5.40); White Blood Count 4.1 K/mm3 (4.8-10.8)
[2018-02-26 13:37] LABS: Alanine Aminotransferase 18 U/L (12-78); Albumin Level 3.7 gm/dL (3.4-5.0); Albumin/Globulin Ratio 1.2 (1.1-1.8); Alkaline Phosphatase 79 U/L (46-116); Anion Gap 13.3 mEq/L (5-15); Aspartate Amino Transferase 19 U/L (15-37); Bilirubin,Total 0.4 mg/dL (0.2-1.0); Blood Urea Nitrogen 12 mg/dL (7-18); Calcium 9.1 mg/dL (8.5-10.1); Carbon Dioxide 28 mmol/L (21.0-32.0); Chloride 105 mmol/L (98-107); Creatinine,Serum 0.87 mg/dL (0.55-1.02); Estimated Glomerular Filt Rate 63 ml/min (>60); GFR (African American) 77 ML/MIN (>60); Globulin 3.1 gm/dl (1.3-3.2); Glucose 121 mg/dL (74-106); Potassium 4.3 mmoL/L (3.5-5.1); Sodium 142 mmol/L (136-145); Total Protein,Serum 6.8 gm/dL (6.4-8.2)
== END ==
PROVIDERS: Visit Provider Internal Medicine Medical Oncology
DX: C18.9 Malignant neoplasm of colon, unspecified (principal)
CPT/HCPCS: 36415; 80053; 85025

== ENCOUNTER 2018-03-02 09:21 | Outpatient (CLI) | payer MEDICARE, MEDICAID, SELFPAY ==
[2018-03-02 09:33] VITALS: BMI 21.9
[2018-03-02 09:59] LABS: Microscopic, Urine URINE MICROSCOPIC (MICROSCOPIC)
[2018-03-02 10:00] LABS: Appearance,Urine SL CLOUDY (Clear); Bilirubin,Urine Negative (Negative); Blood, Urine Negative (Negative); Color,Urine YELLOW (Yellow); Glucose,Urine (UA) Negative (Negative); Ketones,Urine Negative (Negative); Leukocyte Esterase,Urine Negative (Negative); Nitrate,Urine Negative (Negative); Protein,Urine Negative (Negative); Specific Gravity, Urine 1.025 (1.005-1.030); Urobilinogen,Urine 0.2 EU/dl (0.2)
[2018-03-02 10:04] LABS: Basophils % 0.8 % (0.1-2.0); Eosinophils # 0.3 K/mm3 (0.0-0.4); Eosinophils % 6.3 % (0.1-12.0); Hematocrit 35.1 % (37.0-47.0); Hemoglobin 11.1 g/dL (12.2-16.2); Mean Corpuscular HGB Conc 31.7 g/dL (31.8-35.4); Mean Corpuscular Hemoglobin 28.9 pg (27.0-31.2); Mean Corpuscular Volume 91.1 fl (81-99); Mean Platelet Volume 7.5 fl (7.4-10.4); Monocytes # 0.2 K/mm3 (0.1-1.0); Monocytes % 6.1 % (1.7-9.3); Neutrophils # 2.4 K/mm3 (1.8-7.8); Neutrophils % 60.7 % (37.0-80.0); Platelet Count 319 K/mm3 (142-424); Red Blood Count 3.85 M/mm3 (4.20-5.40)
[2018-03-02 10:14] LABS: Bacteria,Urine 1+ /lpf; Mucus,Urine 4+ /lpf; WBC,Urine Occasional #/hpf (0-3)
[2018-03-02 10:52] VITALS: BP 141/70; PULSE 76; RESP 20; TEMP 36.5; O2SAT 97
[2018-03-02 11:22] VITALS: BP 144/72; PULSE 77; RESP 20; O2SAT 98
[2018-03-02 11:45] VITALS: BP 140/71; PULSE 74; RESP 20; O2SAT 97
== END 2018-03-02 12:00 | disposition home or self-care (01) ==
LOC: INF 09:21
PROVIDERS: Visit Provider Internal Medicine Medical Oncology
DX: Z51.11 Encounter for antineoplastic chemotherapy (principal); C18.9 Malignant neoplasm of colon, unspecified
CPT/HCPCS: 81001; 85025; 96413; J1642; J9035

== ENCOUNTER 2018-03-16 10:26 | Outpatient (CLI) | payer MEDICARE, MEDICAID, SELFPAY ==
[2018-03-16 10:31] VITALS: BMI 21.9
[2018-03-16 10:50] LABS: Basophils % 0.8 % (0.1-2.0); Eosinophils # 0.3 K/mm3 (0.0-0.4); Eosinophils % 6.4 % (0.1-12.0); Hematocrit 35.4 % (37.0-47.0); Hemoglobin 11.2 g/dL (12.2-16.2); Lymphocytes # 1.3 K/mm3 (0.7-4.5); Lymphocytes % 27.2 % (10-50); Mean Corpuscular HGB Conc 31.6 g/dL (31.8-35.4); Mean Corpuscular Volume 91.6 fl (81-99); Mean Platelet Volume 7.5 fl (7.4-10.4); Microscopic, Urine URINE MICROSCOPIC (MICROSCOPIC); Monocytes # 0.2 K/mm3 (0.1-1.0); Monocytes % 4.7 % (1.7-9.3); Neutrophils # 2.9 K/mm3 (1.8-7.8); Neutrophils % 60.8 % (37.0-80.0); Platelet Count 222 K/mm3 (142-424); Red Blood Count 3.86 M/mm3 (4.20-5.40); Red Cell Distribution Width 19.4 % (11.5-17.5); White Blood Count 4.8 K/mm3 (4.8-10.8)
[2018-03-16 10:51] LABS: Appearance,Urine CLEAR (Clear); Bilirubin,Urine Negative (Negative); Blood, Urine Negative (Negative); Color,Urine YELLOW (Yellow); Glucose,Urine (UA) Negative (Negative); Ketones,Urine Negative (Negative); Leukocyte Esterase,Urine Negative (Negative); Nitrate,Urine Negative (Negative); Protein,Urine Negative (Negative); Urobilinogen,Urine 0.2 EU/dl (0.2)
[2018-03-16 11:15] LABS: Bacteria,Urine 1+ /lpf
[2018-03-16 11:37] VITALS: BP 183/85; PULSE 82; RESP 18; TEMP 36.7; O2SAT 99
[2018-03-16 12:07] VITALS: BP 167/81; PULSE 80; RESP 18; O2SAT 98
[2018-03-16 12:35] VITALS: BP 161/79; PULSE 82; RESP 18; O2SAT 99
== END 2018-03-16 12:35 | disposition home or self-care (01) ==
LOC: INF 10:26
PROVIDERS: Visit Provider Internal Medicine Medical Oncology
DX: Z51.11 Encounter for antineoplastic chemotherapy (principal); C18.9 Malignant neoplasm of colon, unspecified
CPT/HCPCS: 81001; 85025; 96413; J9035

== ENCOUNTER 2018-03-30 08:25 | Outpatient (CLI) | payer MEDICARE, MEDICAID, SELFPAY ==
[2018-03-30 08:40] VITALS: BMI 19.2
[2018-03-30 09:09] LABS: Basophils # 0.1 K/mm3 (0-0.2); Eosinophils # 0.2 K/mm3 (0.0-0.4); Eosinophils % 4.7 % (0.1-12.0); Hematocrit 34.2 % (37.0-47.0); Hemoglobin 10.8 g/dL (12.2-16.2); Lymphocytes # 1.7 K/mm3 (0.7-4.5); Lymphocytes % 35.9 % (10-50); Mean Corpuscular HGB Conc 31.7 g/dL (31.8-35.4); Mean Corpuscular Hemoglobin 28.9 pg (27.0-31.2); Mean Corpuscular Volume 91.2 fl (81-99); Mean Platelet Volume 7.3 fl (7.4-10.4); Microscopic, Urine URINE MICROSCOPIC (MICROSCOPIC); Monocytes # 0.3 K/mm3 (0.1-1.0); Monocytes % 6.3 % (1.7-9.3); Neutrophils # 2.4 K/mm3 (1.8-7.8); Neutrophils % 52.1 % (37.0-80.0); Platelet Count 212 K/mm3 (142-424); Red Blood Count 3.75 M/mm3 (4.20-5.40); Red Cell Distribution Width 20.2 % (11.5-17.5); White Blood Count 4.7 K/mm3 (4.8-10.8)
[2018-03-30 09:10] LABS: Appearance,Urine CLEAR (Clear); Bilirubin,Urine Negative (Negative); Blood, Urine Negative (Negative); Color,Urine YELLOW (Yellow); Glucose,Urine (UA) Negative (Negative); Ketones,Urine Negative (Negative); Leukocyte Esterase,Urine Negative (Negative); Nitrate,Urine Negative (Negative); Protein,Urine Negative (Negative); Specific Gravity, Urine 1.015 (1.005-1.030); Urobilinogen,Urine 0.2 EU/dl (0.2)
[2018-03-30 09:29] LABS: Bacteria,Urine Trace /lpf; Mucus,Urine 4+ /lpf
[2018-03-30 10:20] VITALS: BP 153/79; PULSE 81; RESP 20; TEMP 36.9; O2SAT 95
[2018-03-30 11:10] VITALS: BP 152/76; PULSE 68; RESP 20; TEMP 36.9; O2SAT 95
== END 2018-03-30 11:20 | disposition home or self-care (01) ==
LOC: INF 08:33
PROVIDERS: Visit Provider Internal Medicine Medical Oncology
DX: Z51.11 Encounter for antineoplastic chemotherapy (principal); C18.9 Malignant neoplasm of colon, unspecified
CPT/HCPCS: 81001; 85025; 96413; J9035

== ENCOUNTER 2018-04-13 08:36 | Outpatient (CLI) | payer MEDICARE, MEDICAID, SELFPAY ==
[2018-04-13 08:40] VITALS: BMI 19.5
[2018-04-13 09:00] LABS: Microscopic, Urine URINE MICROSCOPIC (MICROSCOPIC)
[2018-04-13 09:04] LABS: Appearance,Urine CLEAR (Clear); Bilirubin,Urine Negative (Negative); Blood, Urine Negative (Negative); Color,Urine YELLOW (Yellow); Glucose,Urine (UA) Negative (Negative); Ketones,Urine Negative (Negative); Leukocyte Esterase,Urine Negative (Negative); Nitrate,Urine Negative (Negative); Protein,Urine Negative (Negative); Specific Gravity, Urine 1.015 (1.005-1.030); Urobilinogen,Urine 0.2 EU/dl (0.2)
[2018-04-13 09:08] LABS: Eosinophils # 0.1 K/mm3 (0.0-0.4); Eosinophils % 2.3 % (0.1-12.0); Hematocrit 34.9 % (37.0-47.0); Lymphocytes % 25.6 % (10-50); Mean Corpuscular HGB Conc 31.5 g/dL (31.8-35.4); Mean Corpuscular Volume 91.9 fl (81-99); Mean Platelet Volume 7.1 fl (7.4-10.4); Monocytes # 0.3 K/mm3 (0.1-1.0); Monocytes % 6.5 % (1.7-9.3); Neutrophils # 2.6 K/mm3 (1.8-7.8); Neutrophils % 64.6 % (37.0-80.0); Platelet Count 206 K/mm3 (142-424); Red Cell Distribution Width 21.6 % (11.5-17.5)
[2018-04-13 09:10] LABS: Bacteria,Urine Trace /lpf; Mucus,Urine 4+ /lpf; Squamous Epithelial Cell,Urine Occasional #/hpf (0-5)
[2018-04-13 10:00] VITALS: BP 172/78; PULSE 86; RESP 20; TEMP 36.6; O2SAT 99
[2018-04-13 10:30] VITALS: BP 168/82; PULSE 86; RESP 18
[2018-04-13 10:50] VITALS: BP 162/76; PULSE 95; RESP 18
== END 2018-04-13 10:50 | disposition home or self-care (01) ==
LOC: INF 08:36
PROVIDERS: Visit Provider Internal Medicine Medical Oncology
DX: Z51.11 Encounter for antineoplastic chemotherapy (principal); C18.9 Malignant neoplasm of colon, unspecified
CPT/HCPCS: 81001; 85025; 96413; J9035

== ENCOUNTER → 2018-04-20 09:37 | Outpatient (CLI) | payer MEDICARE, MEDICAID, SELFPAY ==
[2018-04-20 10:06] VITALS: BMI 19.5
[2018-04-20 10:28] LABS: Blood Urea Nitrogen 12 mg/dL (7-18); Creatinine Clearance Estimated 40 mL/min (50-200); Creatinine,Serum 0.55 mg/dL (0.55-1.02); Estimated Glomerular Filt Rate 108 ml/min (>60); GFR (African American) 130 ML/MIN (>60)
--- NOTE | 2018-04-20 10:57 | CT_ITS ---
CT chest w con HISTORY: Follow-up metastatic colon cancer ITS.REASON: COLON CA ORDERING PHYSICIAN: Barby Verma MD PATIENT AGE: 77 years COMPARISON: 01/16/2019 TECHNIQUE: Axial images obtained following the administration of 75 mL of Isovue 370 . Sagittal, and coronal reformatted images are also generated and reviewed. All CT scans at the facility use one or more dose reduction, viz: automated exposure control, ma/kV adjustment per patient size (including targeted exams where dose is matched to indication, i.e. head), or iterative reconstruction technique. FINDINGS: Left lobe of the thyroid gland is enlarged with an isodense nodule at 8 mm not significantly changed. No mediastinal or hilar adenopathy. Coronary artery calcifications are present. There is some minimal thickening of the pericardium is a small hiatal hernia. There are centrilobular emphysematous changes. A 15 mm cavitating nodules present in the left upper lobe medially not significant changed. There are numerous pulmonary nodules present. There is a 2 x 1.6 cm nodule in the right upper lobe anteriorly slightly larger previously 1.7 x 1.5 cm. Subpleural nodule present in the right middle lobe at 2.3 x 2.2 cm not significant change. 3 x 2.4 cm nodule present in the right lung base laterally previously 2.7 x 2.2 cm. A partially cavitating nodule present in the left lung base posteriorly at 1.6 x 1.5 cm previously 1.1 x 1.1 cm. No new nodules are identified. There is a small hiatal hernia. No acute bony findings are evident. There is a left subclavian Mediport catheter present with the tip in the region of the superior vena cava. IMPRESSION: 1. There are bilateral pulmonary nodules as described above some of which are slightly larger and some of which are unchanged. Overall this would suggest some progression of pulmonary metastasis. 2. Centrilobular emphysema with COPD
--- NOTE | 2018-04-20 10:57 | CT_ITS ---
CT abdomen pelvis w con CLINICAL INDICATION: Metastatic colon cancer ITS.REASON: COLON CA ORDERING PHYSICIAN: Barby Verma MD PATIENT AGE: 77 years COMPARISON: 01/16/2018 TECHNIQUE: Axial images obtained with sagittal and coronal reformats. All CT scans at the facility use one or more dose reduction, viz: automated exposure control, ma/kV adjustment per patient size (including targeted exams where dose is matched to indication, i.e. head), or iterative reconstruction technique. PROCEDURE: Oral Contrast: Redicat IV Contrast: 75 mL's of Isovue 370 performed in conjunction with chest CT. FINDINGS: There are multiple hypodense lesions of the liver. Some of these appear to represent simple cysts the largest in the right hepatic lobe posteriorly at 6.6 cm x 5 cm not significantly changed. There are other less well-defined hypodense lesions which are suspicious for metastasis. The largest of these lesions is in the left hepatic lobe at 2.2 x 1.6 cm previously 2.7 x 2.2 cm and in the right hepatic lobe a 2.4 x 2.1 cm previously 2.7 x 2.2 cm. There are other less well-defined isodense lesions including a 1 cm lesion in the right hepatic lobe posteriorly previously 8 mm as well as a 1.2 x 1 cm lesion in the right hepatic lobe anteriorly previously 0.8 x 0.6 cm. A new isodensity is present in the right hepatic lobe anteriorly at 9 mm. The spleen, adrenal glands, and pancreas have an unremarkable appearance. There is mild cortical renal scarring on the right. No renal mass evident. No intestinal obstruction or free air. There has been a prior hysterectomy. No abdominal mass or adenopathy. No intestinal obstruction or free air. No bony destructive lesions. There has been prior vertebral plasty at L5. Wedge compression changes are present at L3 and have developed in the interval with loss of height along the superior endplate of approximately 25-30%. Chronic mild wedging is present at L2. IMPRESSION: 1. Metastatic foci are noted within the liver. These have a mixed response. The larger lesions are slightly smaller. There are however some smaller lesions which are slightly larger. A new nodules present in the right hepatic lobe anteriorly at 9 mm. 2. New wedge compression changes at L3 with loss of height approximately 25-30%. There is minimal retropulsion of the posterior superior endplate.
== END ==
PROVIDERS: PCP Nurse Practitioner Family; Visit Provider Internal Medicine Medical Oncology
DX: C18.9 Malignant neoplasm of colon, unspecified (principal); Z03.89 Encounter for observation for other suspected diseases and conditions ruled out
CPT/HCPCS: 71260; 74177; 82565; 84520; J1642; Q9967

== ENCOUNTER 2018-04-27 09:27 | Outpatient (CLI) | payer MEDICARE, MEDICAID, SELFPAY ==
[2018-04-27 09:32] VITALS: BMI 21.1
[2018-04-27 10:04] LABS: Appearance,Urine CLEAR (Clear); Bilirubin,Urine Negative (Negative); Blood, Urine Negative (Negative); Color,Urine YELLOW (Yellow); Glucose,Urine (UA) Negative (Negative); Ketones,Urine Negative (Negative); Leukocyte Esterase,Urine 1+ (Negative); Microscopic, Urine URINE MICROSCOPIC (MICROSCOPIC); Nitrate,Urine Negative (Negative); Protein,Urine Negative (Negative); Urobilinogen,Urine 0.2 EU/dl (0.2)
[2018-04-27 10:08] LABS: Basophils # 0.1 K/mm3 (0-0.2); Eosinophils # 0.3 K/mm3 (0.0-0.4); Eosinophils % 5.5 % (0.1-12.0); Hematocrit 35.5 % (37.0-47.0); Hemoglobin 11.1 g/dL (12.2-16.2); Lymphocytes # 0.7 K/mm3 (0.7-4.5); Lymphocytes % 16.2 % (10-50); Mean Corpuscular HGB Conc 31.3 g/dL (31.8-35.4); Mean Corpuscular Hemoglobin 28.4 pg (27.0-31.2); Mean Corpuscular Volume 90.9 fl (81-99); Mean Platelet Volume 8.1 fl (7.4-10.4); Monocytes # 0.3 K/mm3 (0.1-1.0); Monocytes % 6.3 % (1.7-9.3); Neutrophils # 3.2 K/mm3 (1.8-7.8); Neutrophils % 70.9 % (37.0-80.0); Platelet Count 195 K/mm3 (142-424); Red Cell Distribution Width 19.2 % (11.5-17.5); White Blood Count 4.5 K/mm3 (4.8-10.8)
[2018-04-27 10:16] LABS: Bacteria,Urine 2+ /lpf; Mucus,Urine 1+ /lpf
[2018-04-27 10:22] LABS: Alanine Aminotransferase 19 U/L (12-78); Albumin Level 3.4 gm/dL (3.4-5.0); Albumin/Globulin Ratio 1.1 (1.1-1.8); Alkaline Phosphatase 77 U/L (46-116); Anion Gap 10.4 mEq/L (5-15); Aspartate Amino Transferase 15 U/L (15-37); Bilirubin,Total 0.3 mg/dL (0.2-1.0); Blood Urea Nitrogen 15 mg/dL (7-18); Calcium 8.7 mg/dL (8.5-10.1); Carbon Dioxide 29 mmol/L (21.0-32.0); Chloride 105 mmol/L (98-107); Creatinine Clearance Estimated 38 mL/min (50-200); Creatinine,Serum 0.66 mg/dL (0.55-1.02); Estimated Glomerular Filt Rate 87 ml/min (>60); GFR (African American) 106 ML/MIN (>60); Globulin 3.2 gm/dl (1.3-3.2); Glucose 135 mg/dL (74-106); Potassium 3.4 mmoL/L (3.5-5.1); Sodium 141 mmol/L (136-145); Total Protein,Serum 6.6 gm/dL (6.4-8.2)
[2018-04-27 10:30] VITALS: BP 122/74; PULSE 68; RESP 20; TEMP 36.9; O2SAT 95
[2018-04-27 11:00] VITALS: BP 123/70; PULSE 68; RESP 18; TEMP 36.9; O2SAT 96
== END 2018-04-27 11:10 | disposition home or self-care (01) ==
LOC: INF 09:27
PROVIDERS: Visit Provider Internal Medicine Medical Oncology
DX: Z51.11 Encounter for antineoplastic chemotherapy (principal); C18.9 Malignant neoplasm of colon, unspecified; R82.90 Unspecified abnormal findings in urine
CPT/HCPCS: 80053; 81001; 85025; 87086; 87088; 87186; 96413; J9035

== ENCOUNTER 2018-05-11 08:26 | Outpatient (CLI) | payer MEDICARE, MEDICAID, SELFPAY ==
[2018-05-11 08:26] VITALS: BMI 21.9
[2018-05-11 08:48] LABS: Microscopic, Urine URINE MICROSCOPIC (MICROSCOPIC)
[2018-05-11 08:59] LABS: Appearance,Urine CLEAR (Clear); Basophils # 0.1 K/mm3 (0-0.2); Bilirubin,Urine Negative (Negative); Blood, Urine Negative (Negative); Color,Urine YELLOW (Yellow); Eosinophils # 0.2 K/mm3 (0.0-0.4); Eosinophils % 3.5 % (0.1-12.0); Glucose,Urine (UA) Negative (Negative); Hematocrit 37.4 % (37.0-47.0); Hemoglobin 12.1 g/dL (12.2-16.2); Ketones,Urine Negative (Negative); Leukocyte Esterase,Urine TRACE (Negative); Lymphocytes # 1.4 K/mm3 (0.7-4.5); Lymphocytes % 20.9 % (10-50); Mean Corpuscular HGB Conc 32.2 g/dL (31.8-35.4); Mean Corpuscular Hemoglobin 29.2 pg (27.0-31.2); Mean Corpuscular Volume 90.7 fl (81-99); Mean Platelet Volume 7.3 fl (7.4-10.4); Monocytes # 0.3 K/mm3 (0.1-1.0); Neutrophils # 4.6 K/mm3 (1.8-7.8); Neutrophils % 69.7 % (37.0-80.0); Nitrate,Urine Negative (Negative); PH,Urine 6.5 (5.0-8.5); Platelet Count 330 K/mm3 (142-424); Protein,Urine Negative (Negative); Red Blood Count 4.12 M/mm3 (4.20-5.40); Red Cell Distribution Width 18.1 % (11.5-17.5); Urobilinogen,Urine 0.2 EU/dl (0.2); White Blood Count 6.6 K/mm3 (4.8-10.8)
[2018-05-11 09:05] LABS: Bacteria,Urine Trace /lpf; Squamous Epithelial Cell,Urine Occasional #/hpf (0-5); WBC,Urine Occasional #/hpf (0-3)
[2018-05-11 09:27] VITALS: BP 160/78; PULSE 84; RESP 18; TEMP 36.3; O2SAT 96
[2018-05-11 09:57] VITALS: BP 156/77; PULSE 81; RESP 18; O2SAT 97
[2018-05-11 10:10] VITALS: BP 151/73; PULSE 87; RESP 18; O2SAT 96
== END 2018-05-11 10:15 | disposition home or self-care (01) ==
LOC: INF 08:26
PROVIDERS: Visit Provider Internal Medicine Medical Oncology
DX: Z51.11 Encounter for antineoplastic chemotherapy (principal); C18.9 Malignant neoplasm of colon, unspecified
CPT/HCPCS: 81001; 85025; 96413; J1642; J9035

== ENCOUNTER → 2018-05-19 15:40 | Outpatient (POV) | payer MEDICARE, MEDICAID, SELFPAY | PROVIDERS: Visit Provider Internal Medicine | DX: Z00.00 Encounter for general adult medical examination without abnormal findings (principal) ==

== ENCOUNTER 2018-05-27 08:25 | Outpatient (CLI) | payer MEDICARE, MEDICAID, SELFPAY ==
[2018-05-27 08:35] VITALS: BMI 21.9
[2018-05-27 09:04] LABS: Microscopic, Urine URINE MICROSCOPIC (MICROSCOPIC)
[2018-05-27 09:06] LABS: Appearance,Urine CLEAR (Clear); Bilirubin,Urine Negative (Negative); Blood, Urine Negative (Negative); Color,Urine YELLOW (Yellow); Glucose,Urine (UA) Negative (Negative); Ketones,Urine Negative (Negative); Leukocyte Esterase,Urine TRACE (Negative); Nitrate,Urine Negative (Negative); Protein,Urine Negative (Negative); Urobilinogen,Urine 0.2 EU/dl (0.2)
[2018-05-27 09:08] LABS: Basophils % 0.7 % (0.1-2.0); Eosinophils # 0.1 K/mm3 (0.0-0.4); Eosinophils % 2.2 % (0.1-12.0); Hemoglobin 12.3 g/dL (12.2-16.2); Lymphocytes # 1.1 K/mm3 (0.7-4.5); Lymphocytes % 22.4 % (10-50); Mean Corpuscular HGB Conc 33.3 g/dL (31.8-35.4); Mean Corpuscular Hemoglobin 30.9 pg (27.0-31.2); Mean Corpuscular Volume 92.8 fl (81-99); Mean Platelet Volume 7.7 fl (7.4-10.4); Monocytes # 0.4 K/mm3 (0.1-1.0); Monocytes % 7.6 % (1.7-9.3); Neutrophils # 3.4 K/mm3 (1.8-7.8); Neutrophils % 67.2 % (37.0-80.0); Platelet Count 227 K/mm3 (142-424); Red Blood Count 3.99 M/mm3 (4.20-5.40); Red Cell Distribution Width 18.8 % (11.5-17.5); White Blood Count 5.1 K/mm3 (4.8-10.8)
[2018-05-27 09:17] LABS: WBC,Urine Occasional #/hpf (0-3)
[2018-05-27 09:18] LABS: Bacteria,Urine Trace /lpf; Squamous Epithelial Cell,Urine Occasional #/hpf (0-5)
[2018-05-27 10:10] VITALS: BP 158/107; PULSE 80; RESP 20; O2SAT 100
[2018-05-27 10:25] VITALS: BP 169/85; PULSE 73; RESP 20
[2018-05-27 10:40] VITALS: BP 158/75; PULSE 70; RESP 20
== END 2018-05-27 11:00 | disposition home or self-care (01) ==
LOC: INF 08:25
PROVIDERS: Visit Provider Internal Medicine Medical Oncology
DX: Z51.11 Encounter for antineoplastic chemotherapy (principal); C18.9 Malignant neoplasm of colon, unspecified
CPT/HCPCS: 81001; 85025; 96413; J9035

== ENCOUNTER 2018-06-10 08:25 | Outpatient (CLI) | payer MEDICARE, MEDICAID, SELFPAY ==
[2018-06-10 08:28] VITALS: BMI 18.8
[2018-06-10 08:50] LABS: Microscopic, Urine URINE MICROSCOPIC (MICROSCOPIC)
[2018-06-10 08:54] LABS: Appearance,Urine CLEAR (Clear); Bilirubin,Urine Negative (Negative); Blood, Urine Negative (Negative); Color,Urine YELLOW (Yellow); Glucose,Urine (UA) Negative (Negative); Ketones,Urine Negative (Negative); Leukocyte Esterase,Urine 1+ (Negative); Nitrate,Urine Negative (Negative); PH,Urine 5.5 (5.0-8.5); Protein,Urine Negative (Negative); Urobilinogen,Urine 0.2 EU/dl (0.2)
[2018-06-10 08:55] LABS: Basophils # 0.1 K/mm3 (0-0.2); Basophils % 1.3 % (0.1-2.0); Eosinophils # 0.4 K/mm3 (0.0-0.4); Eosinophils % 7.9 % (0.1-12.0); Hematocrit 36.3 % (37.0-47.0); Hemoglobin 11.9 g/dL (12.2-16.2); Lymphocytes # 1.5 K/mm3 (0.7-4.5); Lymphocytes % 33.6 % (10-50); Mean Corpuscular HGB Conc 32.7 g/dL (31.8-35.4); Mean Corpuscular Hemoglobin 29.8 pg (27.0-31.2); Mean Corpuscular Volume 91.1 fl (81-99); Mean Platelet Volume 7.6 fl (7.4-10.4); Monocytes # 0.2 K/mm3 (0.1-1.0); Neutrophils # 2.4 K/mm3 (1.8-7.8); Neutrophils % 52.3 % (37.0-80.0); Platelet Count 181 K/mm3 (142-424); Red Blood Count 3.98 M/mm3 (4.20-5.40); Red Cell Distribution Width 17.6 % (11.5-17.5); White Blood Count 4.6 K/mm3 (4.8-10.8)
[2018-06-10 09:13] LABS: Alanine Aminotransferase 25 U/L (12-78); Albumin Level 3.3 gm/dL (3.4-5.0); Alkaline Phosphatase 80 U/L (46-116); Anion Gap 9.5 mEq/L (5-15); Aspartate Amino Transferase 18 U/L (15-37); Bilirubin,Total 0.3 mg/dL (0.2-1.0); Blood Urea Nitrogen 13 mg/dL (7-18); Calcium 8.7 mg/dL (8.5-10.1); Carbon Dioxide 29 mmol/L (21.0-32.0); Chloride 107 mmol/L (98-107); Creatinine Clearance Estimated 38 mL/min (50-200); Creatinine,Serum 0.73 mg/dL (0.55-1.02); Estimated Glomerular Filt Rate 78 ml/min (>60); GFR (African American) 94 ML/MIN (>60); Globulin 3.4 gm/dl (1.3-3.2); Glucose 86 mg/dL (74-106); Potassium 3.5 mmoL/L (3.5-5.1); Sodium 142 mmol/L (136-145); Total Protein,Serum 6.7 gm/dL (6.4-8.2)
[2018-06-10 09:22] LABS: Bacteria,Urine Trace /lpf; RBC,Urine Occasional #/hpf (0-3)
[2018-06-10 10:00] VITALS: BP 170/81; PULSE 84; RESP 18; TEMP 36.4; O2SAT 100
[2018-06-10 10:15] VITALS: BP 176/84; PULSE 84; RESP 18
[2018-06-10 10:30] VITALS: BP 173/81; PULSE 84; RESP 18
[2018-06-10 10:45] VITALS: BP 169/74; PULSE 82; RESP 18
[2018-06-10 11:00] VITALS: BP 182/84; PULSE 83; RESP 18
== END 2018-06-10 11:00 | disposition home or self-care (01) ==
LOC: INF 08:25
PROVIDERS: Visit Provider Internal Medicine Medical Oncology
DX: Z51.11 Encounter for antineoplastic chemotherapy (principal); C18.9 Malignant neoplasm of colon, unspecified; R82.90 Unspecified abnormal findings in urine
CPT/HCPCS: 80053; 81001; 85025; 87086; 96413; J9035

== ENCOUNTER 2018-06-11 08:08 | Outpatient (CLI) | payer MEDICARE, MEDICAID, SELFPAY ==
--- NOTE | 2018-06-11 08:13 | CT_ITS ---
CT abdomen pelvis w con CLINICAL INDICATION: Follow-up colon cancer ITS.REASON: COLON CA ORDERING PHYSICIAN: Barby Verma MD PATIENT AGE: 77 years COMPARISON: 04/20/2018 TECHNIQUE: Axial images obtained with sagittal and coronal reformats. All CT scans at the facility use one or more dose reduction, viz: automated exposure control, ma/kV adjustment per patient size (including targeted exams where dose is matched to indication, i.e. head), or iterative reconstruction technique. PROCEDURE: Oral Contrast: None IV Contrast: 75 mL of Optiray 350. FINDINGS: There is a 3.2 x 2.5 cm soft tissue mass in the right lung base laterally previously measuring 2.8 x 2.4 cm. In addition there is a 1.5 cm nodule in the left lung base posteriorly not significant changed. This does show some mild internal cavitation. A cystic lesion is present in the right hepatic lobe posteriorly at 6.6 cm unchanged. There are other multiple hypoattenuating liver lesions which is slightly increased in size the largest in the right hepatic lobe inferiorly at 2.9 x 2.3 cm previously 2.4 x 2.1 cm. Other smaller nodules are noted and have increased in size. Spleen, adrenal glands, pancreas, and kidneys are unremarkable. There is a small hiatal hernia. No pelvic mass abnormal fluid collection or focal inflammatory change in the pelvis. There is mild amount retained colonic feces. There has been prior kyphoplasty at L5. Compression fractures present at L3 not significantly changed. IMPRESSION: 1. Increasing size of hepatic metastasis 2. Enlarging right lower lobe mass, no change left lower lobe nodule consistent with metastatic disease
--- NOTE | 2018-06-11 08:14 | XR_ITS ---
XR DEXA axial skeleton HISTORY: ITS.REASON: COLON CA, POST MENOPAUSAL ORDERING PHYSICIAN: Barby Verma MD PATIENT AGE: 77 years COMPARISON: None FINDINGS: The BMD measured at the Total Right femoral neck is 0.506 g/cm squared with a T score of -4.0. This is considered Osteoporotic according to the World Health Organization criteria. Fracture risk is High. Treatment is advised. The L1-L4 density of the T12 -3.8. IMPRESSION: Osteoporosis with high fracture risk. Treatment is advised. Suggest follow-up exam May 2019
== END 2018-06-11 09:11 | disposition home or self-care (01) ==
LOC: RAD 08:10
PROVIDERS: PCP Emergency Medicine; Visit Provider Internal Medicine Medical Oncology
DX: C18.9 Malignant neoplasm of colon, unspecified (principal); Z78.0 Asymptomatic menopausal state
CPT/HCPCS: 74177; 77080; J1642; Q9967

== ENCOUNTER → 2018-06-12 15:24 | Outpatient (CLI) | payer MEDICARE, MEDICAID, SELFPAY | PROVIDERS: PCP Nurse Practitioner Family; Visit Provider Nurse Practitioner Family | DX: R42 Dizziness and giddiness (principal) | CPT/HCPCS: 93225; 93226 ==

== ENCOUNTER 2018-07-21 08:53 | Outpatient (CLI) | payer MEDICARE, MEDICAID, SELFPAY ==
[2018-07-21 08:50] VITALS: BP 185/93; PULSE 83; RESP 20; TEMP 36.5; O2SAT 97
[2018-07-21 09:00] VITALS: BP 185/93; PULSE 83; RESP 20; TEMP 36.5; O2SAT 97
== END 2018-07-21 09:00 | disposition home or self-care (01) ==
LOC: INF 08:53
PROVIDERS: Visit Provider Internal Medicine Medical Oncology
DX: Z45.2 Encounter for adjustment and management of vascular access device (principal)
CPT/HCPCS: 96523

== ENCOUNTER → 2018-07-30 13:50 | Outpatient (CLI) | payer MEDICARE, MEDICAID, SELFPAY ==
[2018-07-30 14:42] LABS: Basophils # 0.1 K/mm3 (0-0.2); Eosinophils # 0.1 K/mm3 (0.0-0.4); Eosinophils % 2.4 % (0.1-12.0); Hematocrit 40.4 % (37.0-47.0); Hemoglobin 12.5 g/dL (12.2-16.2); Lymphocytes # 0.9 K/mm3 (0.7-4.5); Lymphocytes % 16.7 % (10-50); Mean Corpuscular HGB Conc 30.9 g/dL (31.8-35.4); Mean Corpuscular Volume 90.4 fl (81-99); Mean Platelet Volume 8.1 fl (7.4-10.4); Monocytes # 0.3 K/mm3 (0.1-1.0); Monocytes % 5.6 % (1.7-9.3); Neutrophils # 4.1 K/mm3 (1.8-7.8); Neutrophils % 74.3 % (37.0-80.0); Platelet Count 283 K/mm3 (142-424); Red Blood Count 4.47 M/mm3 (4.20-5.40); Red Cell Distribution Width 16.5 % (11.5-17.5); White Blood Count 5.6 K/mm3 (4.8-10.8)
[2018-07-30 15:45] LABS: Alanine Aminotransferase 29 U/L (12-78); Albumin Level 3.8 gm/dL (3.4-5.0); Albumin/Globulin Ratio 1.2 (1.1-1.8); Alkaline Phosphatase 85 U/L (46-116); Anion Gap 12.7 mEq/L (5-15); Aspartate Amino Transferase 28 U/L (15-37); Bilirubin,Total 0.5 mg/dL (0.2-1.0); Blood Urea Nitrogen 11 mg/dL (7-18); Carbon Dioxide 29 mmol/L (21.0-32.0); Chloride 103 mmol/L (98-107); Creatinine,Serum 0.65 mg/dL (0.55-1.02); Estimated Glomerular Filt Rate 89 ml/min (>60); GFR (African American) 108 ML/MIN (>60); Globulin 3.1 gm/dl (1.3-3.2); Glucose 105 mg/dL (74-106); Magnesium 2.5 mg/dL (1.4-2.2); Potassium 3.7 mmoL/L (3.5-5.1); Sodium 141 mmol/L (136-145); Total Protein,Serum 6.9 gm/dL (6.4-8.2)
== END ==
PROVIDERS: Visit Provider Nurse Practitioner Family
DX: C18.9 Malignant neoplasm of colon, unspecified (principal); C78.7 Secondary malignant neoplasm of liver and intrahepatic bile duct; R20.0 Anesthesia of skin; R20.2 Paresthesia of skin; R53.83 Other fatigue; D72.829 Elevated white blood cell count, unspecified
CPT/HCPCS: 80053; 83735; 85025

== ENCOUNTER → 2018-08-28 12:12 | Outpatient (CLI) | payer MEDICARE, MEDICAID, SELFPAY ==
--- NOTE | 2018-08-28 12:16 | XR_ITS ---
XR ribs LT min 3V w CXR1V HISTORY: Left-sided rib pain ITS.REASON: rib pain ORDERING PHYSICIAN: Philippe Schulz APRN PATIENT AGE: 78 years Comparison: 01/23/2018 FINDINGS: A frontal view of the chest shows multiple right-sided pulmonary nodules which is increased in size. At least 3 nodules are present the largest in the right costophrenic angle measured 3.6 x 3 cm previously 2.1 x 2.8 cm. A left-sided Mediport catheter present with the tip in the region of the SVC. No fracture evident. IMPRESSION: No rib fracture or obvious lytic or blastic lesion of the ribs. Enlarging right-sided pulmonary nodules consistent with progression of metastatic disease
== END ==
PROVIDERS: PCP Emergency Medicine; Visit Provider Nurse Practitioner Family
DX: R07.81 Pleurodynia (principal)
CPT/HCPCS: 71101

== ENCOUNTER 2018-09-01 08:30 | Outpatient (CLI) | payer OTHER, MEDICARE, MEDICAID, SELFPAY | END 2018-09-01 08:40 | disposition home or self-care (01) | LOC: INF 08:33 | PROVIDERS: Visit Provider Internal Medicine Medical Oncology | DX: Z45.2 Encounter for adjustment and management of vascular access device (principal) | CPT/HCPCS: 96523; J1642 ==

== ENCOUNTER → 2018-09-15 13:00 | Outpatient (CLI) | payer OTHER, MEDICARE, MEDICAID, SELFPAY ==
--- NOTE | 2018-09-15 13:02 | CT_ITS ---
CT abdomen pelvis wo con CLINICAL INDICATION: ITS.REASON: lung mets ORDERING PHYSICIAN: Philippe Schulz APRN PATIENT AGE: 78 years COMPARISON: 06/11/2018. TECHNIQUE: Axial images obtained with sagittal and coronal reformats. All CT scans at the facility use one or more dose reduction, viz: automated exposure control, ma/kV adjustment per patient size (including targeted exams where dose is matched to indication, i.e. head), or iterative reconstruction technique. PROCEDURE: Oral Contrast: None IV Contrast: None . FINDINGS: Liver again shows the fluid attenuation 6.7 cm lesion in the posterior aspect of the right hepatic lobe. This is stable and attenuation with suggest a large cyst. However there is some difference in technique since the prior study was performed with intravenous contrast however there are numerous lesions which are now larger including diffuse area at the caudal posterior right hepatic lobe measuring 4.5 cm and caudal aspect medial segment left hepatic lobe is 3.9 cm and mid right hepatic lobe is 3.5 cm and the anterior superior right hepatic lobe is 2.7 cm and the mid superior right hepatic lobe lesion is 3.3 cm and some of these lesions are associated with small punctate calcifications. This would suggest adenocarcinoma metastases. Spleen, pancreas, adrenal glands, kidneys and urinary bladder remain normal. There is no aortic dilatation. There is incomplete fluid distention of the stomach for adequate evaluation. There is no bowel dilatation, free air or ascites. Appendix is not visualized. Uterus is not visualized. There is no acute osseous process. There is no definite abnormal adenopathy. Impression: Worsening of liver metastatic disease as described above. Incidental stable prominent liver cyst.
--- NOTE | 2018-09-15 13:02 | CT_ITS ---
CT chest wo con HISTORY: ITS.REASON: lung mets ORDERING PHYSICIAN: Philippe Schulz APRN PATIENT AGE: 78 years COMPARISON: None Technique: Axial images obtained. Sagittal, and coronal reformatted images are also generated and reviewed. All CT scans at the facility use one or more dose reduction, viz: automated exposure control, ma/kV adjustment per patient size (including targeted exams where dose is matched to indication, i.e. head), or iterative reconstruction technique. FINDINGS: Airway structures are patent without pneumothorax or pleural effusion. There are some scattered stable lucencies in the lung hardy especially in the upper lobes indicating some emphysematous changes. There are aortic arch and coronary artery calcified plaques. Heart size is normal. There is slight increased thickening of the anterior pericardium which could be from very small pericardial effusion. There are no abnormal mediastinal or hilar lymph nodes. Again seen are the multiple noncalcified nodules and beginning on the left side in the left upper lobe maximal diameter is 1.6 cm, left lower lobe is 2.2 cm. Right lung shows generalized enlargement of the noncalcified nodules, periphery posterior right upper lobe is 0.9 cm, subpleural right upper lobe anterior segment is 2.4 cm and just medial to this is the spiculated nodule measuring 1.2 cm and subpleural lateral segment right middle lobe lesion is 3.8 cm and subpleural right lower lobe lesion is 3.3 cm. Also in there is a 1.9 cm hypodense left thyroid lobe nodule. Impression: Interval increase in size of bilateral metastatic pulmonary nodules. Prominent left thyroid lobe nodule appeared smaller on the prior study however the prior study utilized intravenous contrast and therefore the nodule may have shown some enhancement on the prior study. However if necessary this could be evaluated with ultrasound. Possible very small anterior pericardial effusion.
== END ==
PROVIDERS: PCP Emergency Medicine; Visit Provider Nurse Practitioner Family
DX: C18.9 Malignant neoplasm of colon, unspecified (principal)
CPT/HCPCS: 71250; 74176

== ENCOUNTER 2018-09-29 08:32 | Outpatient (CLI) | payer OTHER, MEDICARE, MEDICAID, SELFPAY ==
[2018-09-29 08:45] VITALS: BP 112/74; PULSE 68; RESP 20; TEMP 37.1; O2SAT 95
== END 2018-09-29 09:15 | disposition home or self-care (01) ==
LOC: INF 08:32
PROVIDERS: PCP Emergency Medicine; Visit Provider Internal Medicine Medical Oncology
DX: Z45.2 Encounter for adjustment and management of vascular access device (principal)
CPT/HCPCS: 96523; J1642